=== PATIENT | female | born 1995 | race Caucasian/White ===

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

== ENCOUNTER 2018-06-15 06:49 | Inpatient (IN) | payer MEDICAID ==
[2018-06-15] MEDS ORDERED: Sodium Chloride 0.9% 10 ML Syringe FLUSH PRN (08:02)
[2018-06-15] MEDS ORDERED: Ondansetron 4 MG/2 ML SDV IV PRN (08:02)
[2018-06-15] MEDS ORDERED: Acetaminophen 325 MG Tab PO PRN (08:02)
--- NOTE | 2018-06-15 08:09 | PCM.LDHP ---
L&D History of Present Illness - General Date of Service: 06/15/18 Admit Problem/Dx: Patient Status Order with Admit Dx/Problem 06/15/18 08:02 Patient Status [ADT] Routine Admission Diagnosis/Problem Admission Diagnosis/Problem - Related Data Allergies/Adverse Reactions: Allergies Allergy/AdvReac Type Severity Reaction Status Date / Time gentamicin Allergy Blurred Verified 06/15/18 06:58 Vision Home Medications: Home Meds Albuterol Sulfate [Proair Hfa] 2 puff INH QID 10/30/12 [History] Ferrous Sulfate [Iron] 325 mg PO DAILY 09/17/16 [History] Pnv No.122/Iron/Folic Acid [ Multi Tablet] 1 tab PO DAILY 09/17/16 [ History] Past Medical History HEENT History: Reports: Other (See Below) Other HEENT History: glasses Respiratory History: Reports: Asthma Genitourinary History: Reports: UTI, Recurrent RACKMAN History: Reports: - Infectious Disease History Infectious Disease History: Reports: Chicken Pox - Past Surgical History HEENT Surgical History: Reports: Adenoidectomy, Tonsillectomy, Other (See Below) Other HEENT Surgeries/Procedures: stye surgery on eyes Respiratory Surgical History: Reports: None Social & Family History - Family History Family Medical History: Noncontributory - Caffeine Use Caffeine Use: Reports: None H&P Review of Systems - Review of Systems: Review Of Systems: See Below General: Reports: No Symptoms HEENT: Reports: No Symptoms Pulmonary: Reports: No Symptoms Cardiovascular: Reports: No Symptoms Gastrointestinal: Reports: No Symptoms Genitourinary: Reports: No Symptoms Musculoskeletal: Reports: No Symptoms Skin: Reports: No Symptoms Psychiatric: Reports: No Symptoms Neurological: Reports: No Symptoms Hematologic/Lymphatic: Reports: No Symptoms Immunologic: Reports: No Symptoms L&D Exam - Exam Exam: See Below - Vital Signs Vital Signs: Last Vital Signs Temp 36.8 C 06/15/18 07:25 Pulse 97 06/15/18 07:25 Resp 16 06/15/18 07:25 BP 133/69 06/15/18 07:25 Pulse Ox 95 06/15/18 07:25 Weight: 68.946 kg - OB Specific Contraction Duration (sec): 40-50 Contraction Frequency (min): 1-2 Contraction Intensity: Mild to Moderate Movement: Active Heart Tones: Present Heart Rate (FHR) Variability: Moderate (6-25 bmp) Presentation: Vertex - Kinney Score Kinney Score Cervix Position: Anterior Kinney Score Consistency: Soft Kinney Score Effacement: 51-70% Kinney Score Dilation: 3-4 cm Kinney Score Infant's Station: -1 ,0 Kinney Score Total: 10 - Exam General: Alert, Oriented HEENT: PERRLA, Conjunctiva Clear, EACs Clear, EOMI, Hearing Intact, Mucosa Moist & [place], Nares Patent, Normal Nasal Septum, Posterior Pharynx Clear, TMs Clear Neck: Supple, Trachea Midline Lungs: Clear to Auscultation, Normal Respiratory Effort Cardiovascular: Regular Rate, Regular Rhythm GI/Abdominal Exam: Normal Bowel Sounds, Soft, Non-Tender, No Organomegaly, No Distention, No Abnormal Bruit, No Mass, Pelvis Stable Rectal Exam: Normal Exam, Normal Rectal Tone Genitourinary: Normal external exam, Normal bimanual exam, Normal speculum exam Back Exam: Normal Inspection, Full Range of Motion Extremities: Normal Inspection, Normal Range of Motion, Non-Tender, No Pedal Edema, Normal Capillary Refill Skin: Warm, Dry, Intact Neurological: Cranial Nerves Intact, Reflexes Equal Bilateral Psychiatric: Alert, Normal Affect, Normal Mood - Patient Data Lab Results Last 24 hrs: Laboratory Results - last 24 hr 06/15/18 Range/Units 07:07 Urine Color Yellow Urine Appearance Cloudy Urine pH 7.0 (4.5-8.0) Ur Specific [place] 1.005 L (1.008-1.030) Urine Protein Negative (NEGATIVE) mg/dL Urine Glucose (UA) Normal (NEGATIVE) mg/dL Urine Ketones Negative (NEGATIVE) mg/dL Urine Occult Blood Large (NEGATIVE) Urine Nitrite Negative (NEGATIVE) Urine Bilirubin Negative (NEGATIVE) Urine Urobilinogen Normal (NORMAL) mg/dL Ur Leukocyte Esterase Large (NEGATIVE) Urine RBC 5-10 H (0-5) Urine WBC 40-50 H (0-5) Ur Epithelial Cells Many Amorphous Sediment Not seen Urine Bacteria Moderate Urine Mucus Not seen - Problem List (1) Labor established SNOMED Code(s): 72189594 ICD Code: VCY3781 - Status: Acute Current Visit: Yes (2) Term SNOMED Code(s): 16313742 ICD Code: Z34.80 - ENCOUNTER FOR SUPRVSN OF NORMAL , UNSP TRIMESTER Status: Acute Current Visit: Yes (3) SNOMED Code(s): 98407815 ICD Code: Z34.90 - ENCNTR FOR SUPRVSN OF NORMAL , UNSP, UNSP TRIMESTER Status: Acute Current Visit: No Qualifiers: Weeks of gestation: 39 weeks Qualified Code(s): Z3A.39 - 39 weeks gestation of Problem List Initiated/Reviewed/Updated: Yes Orders Last 24hrs: Active Orders 24 hr Category Date Time Status Patient Status [ADT] Routine ADT 06/15/18 08:02 Active Ambulate [RC] PER UNIT ROUTINE Care 06/15/18 08:02 Active Communication Order [RC] ASDIRECTED Care 06/15/18 08:02 Active Heart Tones [RC] PER UNIT ROUTINE Care 06/15/18 08:02 Active Non Stress Test [RC] Click to Edit Care 06/15/18 08:02 Active May Shower [RC] ASDIRECTED Care 06/15/18 08:02 Active Notify Provider Vital Signs [RC] PRN Care 06/15/18 08:02 Active Notify Provider [RC] PRN Care 06/15/18 08:02 Active OB Check [OM.PC] Click to Edit Care 06/15/18 06:58 Ordered Up ad Lucia [RC] ASDIRECTED Care 06/15/18 08:02 Active Up to Chair [RC] QID Care 06/15/18 08:02 Active VTE/DVT Education [RC] Click to Edit Care 06/15/18 08:03 Active Vital Signs [RC] PER UNIT ROUTINE Care 06/15/18 08:02 Active Regular Diet [DIET] Diet 06/15/18 Breakfast Active CBC WITH AUTO DIFF [HEME] Routine Lab 06/15/18 07:57 Received Acetaminophen [Tylenol] Med 06/15/18 08:02 Ordered 650 mg PO Q4H PRN Ondansetron [Zofran] Med 06/15/18 08:02 Ordered 4 mg IV Q4H PRN Sodium Chloride 0.9% [Saline Flush] Med 06/15/18 08:02 Ordered 10 ml FLUSH ASDIRECTED PRN DVT/VTE Prophylaxis Reflex [OM.PC] Routine Oth 06/15/18 08:02 Ordered Saline Lock Insert [OM.PC] Routine Oth 06/15/18 08:02 Ordered Resuscitation Status Routine Resus Stat 06/15/18 08:02 Ordered Assessment/Plan Comment:: 06/15/2018 23 yo here at 39 5/7 weeks gestation in labor SVE-/-1 Patient states contractions got stronger around 0300 and she waited and came in around 0630 FHTs category one Contractions regular Labs-O positive, Hep B neg, Hep C neg, HIV neg, RPR nonreactive, Rubella Immune , GBS negative Plan- Monitor labor Monitor FHTs Patient can get in tub Intermittent auscultation of FHT while in tub Pain management per patient request Plan and anticipate a vaginal delivery
[2018-06-15] MEDS ORDERED: Mineral Oil 10 ML Bottle ONE ×2 (10:05→10:19)
[2018-06-15] MEDS ORDERED: Oxytocin 10 Units/1 ML SDV ONE ×2 (10:05→10:19)
[2018-06-15] MEDS ORDERED: Lidocaine 1% 50 ML MDV ONE (10:06)
[2018-06-15] MEDS ORDERED: Naloxone 0.4 MG/ML SDV ONE (10:20)
--- NOTE | 2018-06-15 11:56 | PCM.PNLD ---
Labor Progress Note - VS & Meds Vital Signs: Last Vital Signs Temp 36.8 C 06/15/18 07:25 Pulse 97 06/15/18 07:25 Resp 16 06/15/18 07:25 BP 133/69 06/15/18 07:25 Pulse Ox 95 06/15/18 07:25 Active Medications: Current Medications Acetaminophen (Tylenol) 650 mg PO Q4H PRN PRN Reason: Pain (Mild 1-3) and fever Ondansetron HCl (Zofran) 4 mg IV Q4H PRN PRN Reason: Nausea/Vomiting Sodium Chloride (Saline Flush) 10 ml FLUSH ASDIRECTED PRN PRN Reason: Keep Vein Open Discontinued Medications Oxytocin/Sodium Chloride (Pitocin In Ns 20 Units/1,000 Ml) Confirm Administered Dose 20 unit in 1,000 mls @ as directed .ROUTE .STK-MED ONE Stop: 06/15/18 10:22 Lidocaine HCl (Xylocaine 1%) Confirm Administered Dose 100 ml .ROUTE .STK-MED ONE Stop: 06/15/18 10:07 Mineral Oil (Muri-Lube) Confirm Administered Dose 10 ml .ROUTE .STK-MED ONE Stop: 06/15/18 10:06 Mineral Oil (Muri-Lube) Confirm Administered Dose 10 ml .ROUTE .STK-MED ONE Stop: 06/15/18 10:20 Naloxone HCl (Narcan) Confirm Administered Dose 0.4 mg .ROUTE .STK-MED ONE Stop: 06/15/18 10:21 Oxytocin (Pitocin) Confirm Administered Dose 10 unit .ROUTE .STK-MED ONE Stop: 06/15/18 10:06 Oxytocin (Pitocin) Confirm Administered Dose 10 unit .ROUTE .STK-MED ONE Stop: 06/15/18 10:20 - Uterine Contractions Uterine Monitoring Mode: External [place] Contraction Frequency (min): 1-2 Contraction Duration (sec): 56-60 Contraction Intensity: Moderate to Strong Uterine Resting Tone: Soft - Monitoring Heart Rate (FHR) Variability: Moderate (6-25 bmp) - Vaginal Exam Dilation (cm): 8-9 Effacement (Percent): 90 Station: 1 Cervical Position: Midposition Sterile Vaginal Exam Performed By: Bev Sharif - Labor Progress (Free Text) Labor Progress: 06/15/2018 Patient has been progressing nicely in labor SVE-[id number] AROM per patient request and clear fluid Cotnractions regular every 1-2.5 minutes FHTs category one Patient had good pain control in the tub but is currently in bed and using position changes Plan- Continue to monitor labor Continue to monitor FHTs Continue pain management per patient request Plan and anticipate a vaginal delivery
[2018-06-15] MEDS ORDERED: Acetaminophen 325 MG Tab, 50 Tab Bulk Bottle PO PRN (13:19)
[2018-06-15] MEDS ORDERED: Ibuprofen 200 MG Tab, 24 Tab Bulk Bottle PO PRN (13:19)
[2018-06-15] MEDS ORDERED: Lanolin 100% Cream 40 GM Tube TOP PRN (13:19)
[2018-06-15] MEDS ORDERED: Benzocaine 20% Top Spray 56 GM Bottle TOP PRN (13:19)
[2018-06-15] MEDS ORDERED: Witch Hazel Medicated Pads 100/Jar TOP PRN (13:19)
--- NOTE | 2018-06-15 17:32 | PCM.DEL ---
L & D Note - General Info Date of Service: 06/15/18 Mother's Due Date: 06/17/18 - Delivery Note Labor: Spontaneous Delivery Outcome: Livebirth Infant Delivery Method: Spontaneous Vaginal Delivery-Single Infant Delivery Mode: Spontaneous Presentation: Left Occiput Anterior (REANNA) Nuchal Cord: Present Anesthesia Type: None Amniotic Fluid Description: Clear Episiotomy Type: None Laceration: None Placenta: Intact, Spontaneous Cord: 3 Vessels Estimated Blood Loss: 300 Resuscitation Needed: No [place]: Bulb Syringe, Stimulated, Warmed, [place] Used Score 1 min: 9 Score 5 min: 9 Second Stage Interventions: Reports: Second Nurse Reviewed Heart Tones, Encouragement Given, Pushing Effectively, Pushing Involuntarily, Pushing, McRobert's Position Delivery Comments (Free Text/Narrative):: 06/15/2018 23 yo delivered a viable male infant at 39 5/7 gestational weeks at 1304 on 06/15/2018 in REANNA position over an intact perineum after only three contractions with effective pushing. had a nuchal cord times one that was easily reduced. Infant was then placed up on prewarmed blanket on mother's abdomen. Infant was dried, stimulated, and warmed. Infant then began to pink in color and cry vigorously. Delayed cord clamping was done and then cord was double clamped by provider and cut by father of infant. APGARS-9/9, weight- 7lbs 13.9oz, length-21.1 inches. Placenta spontaneous and intact, three vessel cord. EBL-300ml. No lacerations noted of perineum, cervix, labia, vagina, or rectum. Infant now skin to skin with mother in labor room, both stable at this time. Stages of labor- [id number] - General Info Date of Service: 06/15/18 Functional Status: Reports: Pain Controlled - Review of Systems General: Reports: No Symptoms HEENT: Reports: No Symptoms Pulmonary: Reports: No Symptoms Cardiovascular: Reports: No Symptoms Gastrointestinal: Reports: No Symptoms Genitourinary: Reports: No Symptoms Musculoskeletal: Reports: No Symptoms Skin: Reports: No Symptoms Neurological: Reports: No Symptoms Psychiatric: Reports: No Symptoms - Patient Data Vitals - Most Recent: Last Vital Signs Temp 36.6 C 06/15/18 15:00 Pulse 87 06/15/18 15:58 Resp 16 06/15/18 15:58 BP 122/72 06/15/18 15:58 Pulse Ox 99 06/15/18 15:58 Weight - Most Recent: 68.946 kg Lab Results Last 24 Hours: Laboratory Results - last 24 hr 06/15/18 06/15/18 Range/Units 07:07 07:57 WBC 11.3 H (4.5-11.0) K/uL RBC 4.38 (3.30-5.50) M/uL Hgb 12.1 D (12.0-15.0) g/dL Hct 37.7 (36.0-48.0) % MCV 86 (80-98) fL MCH 28 (27-31) pg MCHC 32 (32-36) % Plt Count 137 L (150-400) K/uL Neut % (Auto) 73 H (36-66) % Lymph % (Auto) 14 L (24-44) % [place] % (Auto) 11 H (2-6) % Eos % (Auto) 1 L (2-4) % Baso % (Auto) 0 (0-1) % Urine Color Yellow Urine Appearance Cloudy Urine pH 7.0 (4.5-8.0) Ur Specific [place] 1.005 L (1.008-1.030) Urine Protein Negative (NEGATIVE) mg/dL Urine Glucose (UA) Normal (NEGATIVE) mg/dL Urine Ketones Negative (NEGATIVE) mg/dL Urine Occult Blood Large (NEGATIVE) Urine Nitrite Negative (NEGATIVE) Urine Bilirubin Negative (NEGATIVE) Urine Urobilinogen Normal (NORMAL) mg/dL Ur Leukocyte Esterase Large (NEGATIVE) Urine RBC 5-10 H (0-5) Urine WBC 40-50 H (0-5) Ur Epithelial Cells Many Amorphous Sediment Not seen Urine Bacteria Moderate Urine Mucus Not seen Med Orders - Current: Current Medications Acetaminophen (Tylenol) 650 mg PO Q4H PRN PRN Reason: Pain (Mild 1-3) and fever Last Admin: 06/15/18 16:42 Dose: 650 mg Acetaminophen (Tylenol Bulk Bottle) 325 - 650 mg PO Q4H PRN PRN Reason: Pain Benzocaine (Lrtw-E-Ntfqozl 20% [place]) 0 gm TOP Q4H PRN PRN Reason: Perineal Comfort Measure Emollient Ointment (Lansinoh Hpa) 0 gm TOP ASDIRECTED PRN PRN Reason: Sore Nipples Ibuprofen (Motrin Bulk Bottle) 600 mg PO Q6H PRN PRN Reason: Pain Ondansetron HCl (Zofran) 4 mg IV Q4H PRN PRN Reason: Nausea/Vomiting Sodium Chloride (Saline Flush) 10 ml FLUSH ASDIRECTED PRN PRN Reason: Keep Vein Open Witch Delaney (Tucks) 1 pad TOP ASDIRECTED PRN PRN Reason: Hemorrhoids Discontinued Medications Oxytocin/Sodium Chloride (Pitocin In Ns 20 Units/1,000 Ml) Confirm Administered Dose 20 unit in 1,000 mls @ as directed .ROUTE .STK-MED ONE Stop: 06/15/18 10:22 Last Admin: 06/15/18 13:58 Dose: 999 mls/hr Lidocaine HCl (Xylocaine 1%) Confirm Administered Dose 100 ml .ROUTE .STK-MED ONE Stop: 06/15/18 10:07 Last Admin: 06/15/18 16:00 Dose: Not Given Mineral Oil (Muri-Lube) Confirm Administered Dose 10 ml .ROUTE .STK-MED ONE Stop: 06/15/18 10:06 Last Admin: 06/15/18 16:00 Dose: Not Given Mineral Oil (Muri-Lube) Confirm Administered Dose 10 ml .ROUTE .STK-MED ONE Stop: 06/15/18 10:20 Last Admin: 06/15/18 16:00 Dose: Not Given Naloxone HCl (Narcan) Confirm Administered Dose 0.4 mg .ROUTE .STK-MED ONE Stop: 06/15/18 10:21 Last Admin: 06/15/18 16:00 Dose: Not Given Oxytocin (Pitocin) Confirm Administered Dose 10 unit .ROUTE .STK-MED ONE Stop: 06/15/18 10:06 Last Admin: 06/15/18 16:00 Dose: Not Given Oxytocin (Pitocin) Confirm Administered Dose 10 unit .ROUTE .STK-MED ONE Stop: 06/15/18 10:20 Last Admin: 06/15/18 16:00 Dose: Not Given - Exam General: Alert, Oriented, Cooperative HEENT: Pupils Equal, Pupils Reactive, EOMI, Mucous Membr. Moist/[place] Neck: Supple Lungs: Clear to Auscultation, Normal Respiratory Effort Cardiovascular: Regular Rate, Regular Rhythm GI/Abdominal Exam: Normal Bowel Sounds, Soft, Non-Tender, No Organomegaly, No Distention, No Abnormal Bruit, No Mass, Pelvis Stable (Female) Exam: Normal External Exam, Normal Speculum Exam, Normal Bimanual Exam Back Exam: Normal Inspection, Full Range of Motion Extremities: Normal Inspection, Normal Range of Motion, Non-Tender, No Pedal Edema, Normal Capillary Refill Skin: Warm, Dry, Intact Neurological: No New Focal Deficit Psy/Mental Status: Alert, Normal Affect, Normal Mood - Problem List & Annotations (1) Labor established SNOMED Code(s): 98491239 Code(s): OYV2781 - Status: Acute Current Visit: Yes (2) Term SNOMED Code(s): 44278820 Code(s): Z34.80 - ENCOUNTER FOR SUPRVSN OF NORMAL , UNSP TRIMESTER Status: Acute Current Visit: Yes (3) SNOMED Code(s): 66955887 Code(s): Z34.90 - ENCNTR FOR SUPRVSN OF NORMAL , UNSP, UNSP TRIMESTER Status: Acute Current Visit: No Qualifiers: Weeks of gestation: 39 weeks Qualified Code(s): Z3A.39 - 39 weeks gestation of (4) () SNOMED Code(s): 947354494 Code(s): Z78.9 - OTHER SPECIFIED HEALTH STATUS Status: Acute Current Visit: Yes (5) Normal vaginal delivery SNOMED Code(s): 83571427 Code(s): O80 - ENCOUNTER FOR FULL-TERM UNCOMPLICATED DELIVERY Status: Acute Current Visit: No - Problem List Review Problem List Initiated/Reviewed/Updated: Yes - My Orders Last 24 Hours: My Active Orders 06/15/18 06:58 OB Check [OM.PC] Click to Edit 06/15/18 08:02 Patient Status [ADT] Routine Ambulate [RC] PER UNIT ROUTINE Communication Order [RC] ASDIRECTED Heart Tones [RC] PER UNIT ROUTINE Non Stress Test [RC] Click to Edit May Shower [RC] ASDIRECTED Notify Provider Vital Signs [RC] PRN Notify Provider [RC] PRN Up ad Lucia [RC] ASDIRECTED Up to Chair [RC] QID Vital Signs [RC] PER UNIT ROUTINE Acetaminophen [Tylenol] 650 mg PO Q4H PRN Ondansetron [Zofran] 4 mg IV Q4H PRN Sodium Chloride 0.9% [Saline Flush] 10 ml FLUSH ASDIRECTED PRN DVT/VTE Prophylaxis Reflex [OM.PC] Routine Saline Lock Insert [OM.PC] Routine Resuscitation Status Routine 06/15/18 08:03 VTE/DVT Education [RC] Click to Edit 06/15/18 13:19 Patient Status [ADT] Routine Vital Signs [RC] PFP Acetaminophen [Tylenol Bulk Bottle] 325 - 650 mg PO Q4H PRN Benzocaine [Dkxm-Z-Bwgvren 20% Hamler] See Dose Instructions TOP Q4H PRN Ibuprofen [Motrin Bulk Bottle] 600 mg PO Q6H PRN Lanolin [Lansinoh HPA] 0 gm TOP ASDIRECTED PRN Witch Delaney [Tucks] 1 pad TOP ASDIRECTED PRN Assess Lochia [WOMSER] Per Unit Routine Assess Uterine Involution [WOMSER] Per Unit Routine Ice Therapy [OM.PC] Per Unit Routine Perineal Care [OM.PC] Per Unit Routine 06/15/18 Breakfast Regular Diet [DIET] 06/16/18 06:00 CBC WITH AUTO DIFF [HEME] Routine - Assessment Assessment:: 06/15/2018 23 yo [id number] at 39 5/7 gestational weeks had a without complications Labs-O positive, Hep B neg, Hep C neg, HIV neg, RPR nonreactive, Rubella Immune , GBS negative - Plan Plan:: 06/15/2018 23 yo here at 39 5/7 weeks gestation in labor SVE-3/60/-1 Patient states contractions got stronger around 0300 and she waited and came in around 0630 FHTs category one Contractions regular Labs-O positive, Hep B neg, Hep C neg, HIV neg, RPR nonreactive, Rubella Immune , GBS negative Plan- Monitor labor Monitor FHTs Patient can get in tub Intermittent auscultation of FHT while in tub Pain management per patient request Plan and anticipate a vaginal delivery 06/15/2018 Routine cares Encourage and support Plan discharge 24-48 hours
--- NOTE | 2018-06-16 08:49 | PCM.PNPP ---
<Xena Awan - Last Filed: 06/16/18 08:44> - General Info Date of Service: 06/16/18 (PP day 1) Functional Status: Reports: Pain Controlled - Review of Systems General: Reports: No Symptoms HEENT: Reports: No Symptoms Pulmonary: Reports: No Symptoms Cardiovascular: Reports: No Symptoms Gastrointestinal: Reports: No Symptoms Genitourinary: Reports: No Symptoms Musculoskeletal: Reports: No Symptoms Skin: Reports: No Symptoms Neurological: Reports: No Symptoms Psychiatric: Reports: No Symptoms - General Info Date of Service: 06/16/18 - Patient Data Vital Signs - Most Recent: Last Vital Signs Temp 36.4 C 06/16/18 07:28 Pulse 93 06/16/18 07:28 Resp 16 06/16/18 07:28 BP 120/56 L 06/16/18 07:28 Pulse Ox 96 06/16/18 07:28 Weight - Most Recent: 151 lb 15.998 oz Lab Results - Last 24 Hours: Laboratory Results - last 24 hr 06/16/18 Range/Units 06:00 WBC 13.4 H (4.5-11.0) K/uL RBC 4.12 (3.30-5.50) M/uL Hgb 11.3 L (12.0-15.0) g/dL Hct 35.5 L (36.0-48.0) % MCV 86 (80-98) fL MCH 27 (27-31) pg MCHC 32 (32-36) % Plt Count 146 L (150-400) K/uL Neut % (Auto) 69 H (36-66) % Lymph % (Auto) 21 L (24-44) % [place] % (Auto) 9 H (2-6) % Eos % (Auto) 2 (2-4) % Baso % (Auto) 0 (0-1) % Med Orders - Current: Current Medications Acetaminophen (Tylenol) 650 mg PO Q4H PRN PRN Reason: Pain (Mild 1-3) and fever Last Admin: 06/15/18 16:42 Dose: 650 mg Acetaminophen (Tylenol Bulk Bottle) 325 - 650 mg PO Q4H PRN PRN Reason: Pain Benzocaine (Bmaf-D-Atxriea 20% Pringle) 0 gm TOP Q4H PRN PRN Reason: Perineal Comfort Measure Emollient Ointment (Lansinoh Hpa) 0 gm TOP ASDIRECTED PRN PRN Reason: Sore Nipples Ibuprofen (Motrin Bulk Bottle) 600 mg PO Q6H PRN PRN Reason: Pain Ondansetron HCl (Zofran) 4 mg IV Q4H PRN PRN Reason: Nausea/Vomiting Sodium Chloride (Saline Flush) 10 ml FLUSH ASDIRECTED PRN PRN Reason: Keep Vein Open Witch Delaney (Tucks) 1 pad TOP ASDIRECTED PRN PRN Reason: Hemorrhoids Discontinued Medications Oxytocin/Sodium Chloride (Pitocin In Ns 20 Units/1,000 Ml) Confirm Administered Dose 20 unit in 1,000 mls @ as directed .ROUTE .STK-MED ONE Stop: 06/15/18 10:22 Last Admin: 06/15/18 13:58 Dose: 999 mls/hr Lidocaine HCl (Xylocaine 1%) Confirm Administered Dose 100 ml .ROUTE .STK-MED ONE Stop: 06/15/18 10:07 Last Admin: 06/15/18 16:00 Dose: Not Given Mineral Oil (Muri-Lube) Confirm Administered Dose 10 ml .ROUTE .STK-MED ONE Stop: 06/15/18 10:06 Last Admin: 06/15/18 16:00 Dose: Not Given Mineral Oil (Muri-Lube) Confirm Administered Dose 10 ml .ROUTE .STK-MED ONE Stop: 06/15/18 10:20 Last Admin: 06/15/18 16:00 Dose: Not Given Naloxone HCl (Narcan) Confirm Administered Dose 0.4 mg .ROUTE .STK-MED ONE Stop: 06/15/18 10:21 Last Admin: 06/15/18 16:00 Dose: Not Given Oxytocin (Pitocin) Confirm Administered Dose 10 unit .ROUTE .STK-MED ONE Stop: 06/15/18 10:06 Last Admin: 06/15/18 16:00 Dose: Not Given Oxytocin (Pitocin) Confirm Administered Dose 10 unit .ROUTE .STK-MED ONE Stop: 06/15/18 10:20 Last Admin: 06/15/18 16:00 Dose: Not Given - Infant Interaction Disposition, : [place] in Room with Family Interaction: Holding Infant Feeding: Breastfed ; Nursed Well Support Person: Significant Other, Other (see below) - Recovery Exam Fundal Tone: Firm Fundal Level: At Umbilicus Fundal Placement: Midline Lochia Amount: Small Lochia Color: Rubra/Red Perineum Description: Intact, Minimal Bruising/Swelling Episiotomy/Laceration: None Bladder Status: Voiding Urinary Elimination: Voided - Exam General: Alert, Oriented HEENT: Pupils Equal Neck: Supple Lungs: Clear to Auscultation, Normal Respiratory Effort Cardiovascular: Regular Rate, Regular Rhythm GI/Abdominal Exam: Normal Bowel Sounds, Soft, Non-Tender, No Organomegaly, No Distention, No Abnormal Bruit, No Mass, Pelvis Stable Extremities: Normal Inspection, Normal Range of Motion, Non-Tender, No Pedal Edema, Normal Capillary Refill Skin: Warm, Dry, Intact Neurological: No New Focal Deficit Psy/Mental Status: Alert, Normal Affect, Normal Mood - Problem List & Annotations (1) () SNOMED Code(s): 596565313 Code(s): Z78.9 - OTHER SPECIFIED HEALTH STATUS Status: Acute Current Visit: Yes (2) Term SNOMED Code(s): 99883657 Code(s): Z34.80 - ENCOUNTER FOR SUPRVSN OF NORMAL , UNSP TRIMESTER Status: Acute Current Visit: Yes (3) Active labor at term SNOMED Code(s): 46963471 Code(s): ABO9822 - Status: Acute Current Visit: No (4) Normal vaginal delivery SNOMED Code(s): 44469171 Code(s): O80 - ENCOUNTER FOR FULL-TERM UNCOMPLICATED DELIVERY Status: Acute Current Visit: No (5) SNOMED Code(s): 62213033 Code(s): Z34.90 - ENCNTR FOR SUPRVSN OF NORMAL , UNSP, UNSP TRIMESTER Status: Acute Current Visit: No Qualifiers: Weeks of gestation: 39 weeks Qualified Code(s): Z3A.39 - 39 weeks gestation of - Problem List Review Problem List Initiated/Reviewed/Updated: Yes - Assessment Assessment:: 06/15/2018 23 yo [id number] at 39 5/7 gestational weeks had a without complications Labs-O positive, Hep B neg, Hep C neg, HIV neg, RPR nonreactive, Rubella Immune , GBS negative 06/16/18 23 yo day 1 PP FF, bleeding light Pain controlled is going well Perineum intact - Plan Plan:: 06/15/2018 23 yo here at 39 5/7 weeks gestation in labor SVE-/-1 Patient states contractions got stronger around 0300 and she waited and came in around 0630 FHTs category one Contractions regular Labs-O positive, Hep B neg, Hep C neg, HIV neg, RPR nonreactive, Rubella Immune , GBS negative Plan- Monitor labor Monitor FHTs Patient can get in tub Intermittent auscultation of FHT while in tub Pain management per patient request Plan and anticipate a vaginal delivery 06/15/2018 Routine cares Encourage and support Plan discharge 24-48 hours 06/16/18 Routine PP cares support Anticipate discharge home tomorrow <Caitlin Pinedo - Last Filed: 06/16/18 08:57> - Patient Data Vital Signs - Most Recent: Last Vital Signs Temp 97.6 F 06/16/18 07:28 Pulse 93 06/16/18 07:28 Resp 16 06/16/18 07:28 BP 120/56 L 06/16/18 07:28 Pulse Ox 96 06/16/18 07:28 Lab Results - Last 24 Hours: Laboratory Results - last 24 hr 06/16/18 Range/Units 06:00 WBC 13.4 H (4.5-11.0) K/uL RBC 4.12 (3.30-5.50) M/uL Hgb 11.3 L (12.0-15.0) g/dL Hct 35.5 L (36.0-48.0) % MCV 86 (80-98) fL MCH 27 (27-31) pg MCHC 32 (32-36) % Plt Count 146 L (150-400) K/uL Neut % (Auto) 69 H (36-66) % Lymph % (Auto) 21 L (24-44) % [place] % (Auto) 9 H (2-6) % Eos % (Auto) 2 (2-4) % Baso % (Auto) 0 (0-1) % Med Orders - Current: Current Medications Acetaminophen (Tylenol) 650 mg PO Q4H PRN PRN Reason: Pain (Mild 1-3) and fever Last Admin: 06/15/18 16:42 Dose: 650 mg Acetaminophen (Tylenol Bulk Bottle) 325 - 650 mg PO Q4H PRN PRN Reason: Pain Benzocaine (Cwsy-X-Plwlfcd 20% Pringle) 0 gm TOP Q4H PRN PRN Reason: Perineal Comfort Measure Emollient Ointment (Lansinoh Hpa) 0 gm TOP ASDIRECTED PRN PRN Reason: Sore Nipples Ibuprofen (Motrin Bulk Bottle) 600 mg PO Q6H PRN PRN Reason: Pain Ondansetron HCl (Zofran) 4 mg IV Q4H PRN PRN Reason: Nausea/Vomiting Sodium Chloride (Saline Flush) 10 ml FLUSH ASDIRECTED PRN PRN Reason: Keep Vein Open Witch Delaney (Tucks) 1 pad TOP ASDIRECTED PRN PRN Reason: Hemorrhoids Discontinued Medications Oxytocin/Sodium Chloride (Pitocin In Ns 20 Units/1,000 Ml) Confirm Administered Dose 20 unit in 1,000 mls @ as directed .ROUTE .STK-MED ONE Stop: 06/15/18 10:22 Last Admin: 06/15/18 13:58 Dose: 999 mls/hr Lidocaine HCl (Xylocaine 1%) Confirm Administered Dose 100 ml .ROUTE .STK-MED ONE Stop: 06/15/18 10:07 Last Admin: 06/15/18 16:00 Dose: Not Given Mineral Oil (Muri-Lube) Confirm Administered Dose 10 ml .ROUTE .STK-MED ONE Stop: 06/15/18 10:06 Last Admin: 06/15/18 16:00 Dose: Not Given Mineral Oil (Muri-Lube) Confirm Administered Dose 10 ml .ROUTE .STK-MED ONE Stop: 06/15/18 10:20 Last Admin: 06/15/18 16:00 Dose: Not Given Naloxone HCl (Narcan) Confirm Administered Dose 0.4 mg .ROUTE .STK-MED ONE Stop: 06/15/18 10:21 Last Admin: 06/15/18 16:00 Dose: Not Given Oxytocin (Pitocin) Confirm Administered Dose 10 unit .ROUTE .STK-MED ONE Stop: 06/15/18 10:06 Last Admin: 06/15/18 16:00 Dose: Not Given Oxytocin (Pitocin) Confirm Administered Dose 10 unit .ROUTE .ST-MED ONE Stop: 06/15/18 10:20 Last Admin: 06/15/18 16:00 Dose: Not Given - Plan Plan:: I personally performed or re-performed the physical examination and medical decision making. I have verified all student documentation or findings, including history, physical exam and/or medical decision making.Caitlin Pinedo APRN, RACHEL, CFNP
[2018-06-17 07:34] VITALS: BP 125/68
--- NOTE | 2018-06-17 09:22 | PCM.PNPP ---
- General Info Date of Service: 06/17/18 (PPD 2 D/C) Admission Dx/Problem (Free Text): Patient Status Order with Admit Dx/Problem 06/15/18 08:02 Patient Status [ADT] Routine Admission Diagnosis/Problem Admission Diagnosis/Problem Functional Status: Reports: Pain Controlled - Review of Systems General: Reports: No Symptoms HEENT: Reports: No Symptoms Pulmonary: Reports: No Symptoms Cardiovascular: Reports: No Symptoms Gastrointestinal: Reports: No Symptoms Genitourinary: Reports: No Symptoms Musculoskeletal: Reports: No Symptoms Skin: Reports: No Symptoms Neurological: Reports: No Symptoms Psychiatric: Reports: No Symptoms - General Info Date of Service: 06/17/18 - Patient Data Vital Signs - Most Recent: Last Vital Signs Temp 98.5 F 06/17/18 07:33 Pulse 89 06/17/18 07:33 Resp 16 06/17/18 07:33 BP 125/68 06/17/18 07:33 Pulse Ox 97 06/17/18 07:33 Weight - Most Recent: 151 lb 15.998 oz I&O - Last 24 Hours: Intake & Output 06/16/18 06/17/18 06/17/18 22:59 06:59 14:59 Intake Total 600 Balance 600 Med Orders - Current: Current Medications Acetaminophen (Tylenol) 650 mg PO Q4H PRN PRN Reason: Pain (Mild 1-3) and fever Last Admin: 06/15/18 16:42 Dose: 650 mg Acetaminophen (Tylenol Bulk Bottle) 325 - 650 mg PO Q4H PRN PRN Reason: Pain Benzocaine (Aspx-N-Lcmqicr 20% [place]) 0 gm TOP Q4H PRN PRN Reason: Perineal Comfort Measure Emollient Ointment (Lansinoh Hpa) 0 gm TOP ASDIRECTED PRN PRN Reason: Sore Nipples Ibuprofen (Motrin Bulk Bottle) 600 mg PO Q6H PRN PRN Reason: Pain Ondansetron HCl (Zofran) 4 mg IV Q4H PRN PRN Reason: Nausea/Vomiting Sodium Chloride (Saline Flush) 10 ml FLUSH ASDIRECTED PRN PRN Reason: Keep Vein Open Witch Delaney (Tucks) 1 pad TOP ASDIRECTED PRN PRN Reason: Hemorrhoids Discontinued Medications Oxytocin/Sodium Chloride (Pitocin In Ns 20 Units/1,000 Ml) Confirm Administered Dose 20 unit in 1,000 mls @ as directed .ROUTE .STK-MED ONE Stop: 06/15/18 10:22 Last Admin: 06/15/18 13:58 Dose: 999 mls/hr Lidocaine HCl (Xylocaine 1%) Confirm Administered Dose 100 ml .ROUTE .STK-MED ONE Stop: 06/15/18 10:07 Last Admin: 06/15/18 16:00 Dose: Not Given Mineral Oil (Muri-Lube) Confirm Administered Dose 10 ml .ROUTE .STK-MED ONE Stop: 06/15/18 10:06 Last Admin: 06/15/18 16:00 Dose: Not Given Mineral Oil (Muri-Lube) Confirm Administered Dose 10 ml .ROUTE .STK-MED ONE Stop: 06/15/18 10:20 Last Admin: 06/15/18 16:00 Dose: Not Given Naloxone HCl (Narcan) Confirm Administered Dose 0.4 mg .ROUTE .STK-MED ONE Stop: 06/15/18 10:21 Last Admin: 06/15/18 16:00 Dose: Not Given Oxytocin (Pitocin) Confirm Administered Dose 10 unit .ROUTE .STK-MED ONE Stop: 06/15/18 10:06 Last Admin: 06/15/18 16:00 Dose: Not Given Oxytocin (Pitocin) Confirm Administered Dose 10 unit .ROUTE .STK-MED ONE Stop: 06/15/18 10:20 Last Admin: 06/15/18 16:00 Dose: Not Given - Interaction Disposition, : [place] in Room with Family Infant Interaction: Holding Feeding: Breastfed Infant; Nursed Well Support Person: Significant Other, Other (see below) - Recovery Exam Fundal Tone: Firm Fundal Level: 2 Fingerbreadths Below Umbilicus Fundal Placement: Midline Lochia Amount: Moderate Lochia Color: Rubra/Red Perineum Description: Intact, Minimal Bruising/Swelling Episiotomy/Laceration: None Bladder Status: Voiding Urinary Elimination: Voided - Exam General: Alert, Oriented HEENT: Pupils Equal Neck: Supple Lungs: Clear to Auscultation, Normal Respiratory Effort Cardiovascular: Regular Rate, Regular Rhythm GI/Abdominal Exam: Normal Bowel Sounds, Soft, Non-Tender, No Distention, No Mass , Pelvis Stable Extremities: Normal Inspection, Normal Range of Motion, Non-Tender Skin: Warm, Dry, Intact Wound/Incisions: Healing Well Neurological: No New Focal Deficit Psy/Mental Status: Alert, Normal Affect, Normal Mood - Problem List & Annotations (1) Term SNOMED Code(s): 93492469 Code(s): Z34.80 - ENCOUNTER FOR SUPRVSN OF NORMAL , UNSP TRIMESTER Status: Acute Current Visit: Yes (2) () SNOMED Code(s): 385247501 Code(s): Z78.9 - OTHER SPECIFIED HEALTH STATUS Status: Acute Current Visit: Yes (3) Normal vaginal delivery SNOMED Code(s): 97336444 Code(s): O80 - ENCOUNTER FOR FULL-TERM UNCOMPLICATED DELIVERY Status: Acute Current Visit: No (4) Active labor at term SNOMED Code(s): 20447452 Code(s): UJN2253 - Status: Acute Current Visit: No - Problem List Review Problem List Initiated/Reviewed/Updated: Yes - Assessment Assessment:: 06/15/2018 23 yo [id number] at 39 5/7 gestational weeks had a without complications Labs-O positive, Hep B neg, Hep C neg, HIV neg, RPR nonreactive, Rubella Immune , GBS negative 06/16/18 23 yo day 1 PP FF, bleeding light Pain controlled is going well Perineum intact 06/17/18 without complications, doing well [place] flow voiding up and about Wants to go home - Plan Plan:: I personally performed or re-performed the physical examination and medical decision making. I have verified all student documentation or findings, including history, physical exam and/or medical decision making.Caitlin Pinedo APRN, RACHEL, [place] 06/17/18 Home today see RACHEL Sharif 6 weeks
== END 2018-06-17 11:20 | disposition home or self-care (01) | DRG 807 ==
LOC: JP.OBCHECK 06:49 → JP.OB 08:00 → OBSVTOIN 13:04 → JP.MS 13:05
PROVIDERS: ADMIT Advanced Practice Midwife; ATTEND Advanced Practice Midwife
PROC: 10E0XZZ Delivery of Products of Conception, External Approach (ICD-10-PCS; principal; 2018-06-15)
PROC: 10907ZC Drainage of Amniotic Fluid, Therapeutic from Products of Conception, Via Natural or Artificial Opening (ICD-10-PCS; 2018-06-15)
DX: O69.81X0 Labor and delivery complicated by cord around neck, without compression, not applicable or unspecified (principal); Z37.0 Single live birth; O99.52 Diseases of the respiratory system complicating childbirth; Z3A.39 39 weeks gestation of pregnancy; J45.909 Unspecified asthma, uncomplicated; Z88.1 Allergy status to other antibiotic agents
CPT/HCPCS: 36415; 59409; 81001; 85025; 99211; A9270-GY; J2590

== ENCOUNTER 2020-11-13 04:49 | Inpatient (IN) | payer MEDICAID ==
[2020-11-13] MEDS ORDERED: Penicillin G Potassium 5 MILLUNITS in Sodium Chloride 0.9% 50 ML IV ONE (05:35)
[2020-11-13] MEDS ORDERED: Acetaminophen 325 MG Tab PO PRN (05:35)
[2020-11-13] MEDS ORDERED: Sodium Chloride 0.9% 10 ML Syringe FLUSH PRN (05:35)
[2020-11-13] MEDS ORDERED: Ondansetron 4 MG/2 ML SDV IV PRN (05:35)
[2020-11-13] MEDS ORDERED: Sodium Chloride 0.9% 50 ML ONE (05:47)
--- NOTE | 2020-11-13 06:13 | PCM.LDHP ---
<Dottie Desouza A - Last Filed: 11/13/20 06:07> L&D History of Present Illness - General Date of Service: 11/13/20 Admit Problem/Dx: Patient Status Order with Admit Dx/Problem 11/13/20 05:35 Patient Status [ADT] Routine Admission Diagnosis/Problem Admission Diagnosis/Problem Source of Information: Patient History Limitations: Reports: No Limitations - History of Present Illness Introduction:: 11/13/20 Imani is a 25 year old at 39weeks 2 days who came in around 0500 stating that she has been noticing contractions since about 0200. She denies any leaking of fluid, abnormal discharge, or vaginal bleeding. EFM shows a baseline of 145bpm with accels and no decels. SVE for 6-7cm and 80% effaced. IV accessed was obtained and penicillin given for GBS positive status. She desires no pharmacologic pain management at this time and is laboring in the tub with intermittent auscultation for monitoring at this time. This was complicated by IUGR which has improved since diagnosis and at her last ultrasound, baby measured in the 11th percentile. 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: - Infectious Disease History Infectious Disease History: Reports: Chicken Pox - Past Surgical History HEENT Surgical History: Reports: Adenoidectomy, Tonsillectomy, Other (See Below) Other HEENT Surgeries/Procedures: stye surgery on eyes Respiratory Surgical History: Reports: None Social & Family History - Family History Family Medical History: No Pertinent Family History - Caffeine Use Caffeine Use: Reports: None H&P Review of Systems - Review of Systems: Review Of Systems: See Below General: Reports: No Symptoms HEENT: Reports: No Symptoms Pulmonary: Reports: No Symptoms Cardiovascular: Reports: No Symptoms Gastrointestinal: Reports: No Symptoms Genitourinary: Reports: No Symptoms Musculoskeletal: Reports: No Symptoms Skin: Reports: No Symptoms Psychiatric: Reports: No Symptoms Neurological: Reports: No Symptoms Hematologic/Lymphatic: Reports: No Symptoms L&D Exam - Exam Exam: See Below - OB Specific Contraction Frequency (min): 1-3 Contraction Intensity: Moderate to Strong Movement: Active Heart Tones: Present Heart Tones per Min: 145 Heart Rate (FHR) Variability: Moderate (6-25 bpm) - Exam General: Alert, Oriented HEENT: PERRLA, Conjunctiva Clear, EOMI, Hearing Intact, Nares Patent Neck: Supple, Trachea Midline Lungs: Normal Respiratory Effort Cardiovascular: Regular Rate GI/Abdominal Exam: Soft, Non-Tender Rectal Exam: Normal Exam, Normal Rectal Tone Genitourinary: Normal external exam, Normal bimanual exam, Normal speculum exam Back Exam: Normal Inspection, Full Range of Motion Extremities: Normal Inspection, Normal Range of Motion, Non-Tender, No Pedal Edema, Normal Capillary Refill Skin: Warm, Dry, Intact Neurological: Cranial Nerves Intact, Reflexes Equal Bilateral Psychiatric: Alert, Normal Affect, Normal Mood - Patient Data Lab Results Last 24 hrs: Laboratory Results - last 24 hr 11/13/20 11/13/20 11/13/20 Range/Units 04:56 05:35 05:40 WBC 11.3 H (4.5-11.0) K/uL RBC 4.39 (3.30-5.50) M/uL Hgb 11.6 L (12.0-15.0) g/dL Hct 35.7 L (36.0-48.0) % MCV 81 (80-98) fL MCH 26 L (27-31) pg MCHC 33 (32-36) % Plt Count 172 (150-400) K/uL Neut % (Auto) 71.7 H (36-66) % Lymph % (Auto) 17.1 L (24-44) % [place] % (Auto) 9.6 H (2-6) % Eos % (Auto) 1.4 L (2-4) % Baso % (Auto) 0.2 (0-1) % Urine Color Yellow (YELLOW) Urine Appearance Clear (CLEAR) Urine pH 7.5 (5.0-8.0) Ur Specific [place] 1.020 (1.008-1.030) Urine Protein Negative (NEGATIVE) mg/dL Urine Glucose (UA) Negative (NEGATIVE) mg/dL Urine Ketones Negative (NEGATIVE) mg/dL Urine Occult Blood Negative (NEGATIVE) Urine Nitrite Negative (NEGATIVE) Urine Bilirubin Negative (NEGATIVE) Urine Urobilinogen 0.2 (0.2-1.0) EU/dL Ur Leukocyte Esterase Trace H (NEGATIVE) Urine RBC 0-5 (0-5) Urine WBC 0-5 (0-5) Ur Epithelial Cells Few Amorphous Sediment Not seen Urine Bacteria Moderate Urine Mucus Not seen Urine Opiates Screen Negative (NEGATIVE) Ur Oxycodone Screen Negative (NEGATIVE) Urine Methadone Screen Negative (NEGATIVE) Ur Propoxyphene Screen Negative (NEGATIVE) Ur Barbiturates Screen Negative (NEGATIVE) Ur Tricyclics Screen Negative (NEGATIVE) Ur Phencyclidine Scrn Negative (NEGATIVE) Ur Amphetamine Screen Negative (NEGATIVE) U Methamphetamines Scrn Negative (NEGATIVE) Urine MDMA Screen Negative (NEGATIVE) U Benzodiazepines Scrn Negative (NEGATIVE) U Cocaine Metab Screen Negative (NEGATIVE) U Marijuana (THC) Screen Negative (NEGATIVE) Result Diagrams: 11/13/20 05:40 - Problem List (1) Active labor at term SNOMED Code(s): 78080280 ICD Code: [id number] - Status: Acute Current Visit: No (2) Labor established SNOMED Code(s): 54299840 ICD Code: [id number] - Status: Acute Current Visit: No (3) Normal vaginal delivery SNOMED Code(s): 95675232, 627361879 ICD Code: O80 - ENCOUNTER FOR FULL-TERM UNCOMPLICATED DELIVERY Status: Acute Current Visit: No (4) Term SNOMED Code(s): 02854492 ICD Code: Z34.80 - ENCOUNTER FOR SUPRVSN OF NORMAL , UNSP TRIMESTER Status: Acute Current Visit: No (5) SNOMED Code(s): 28639612 ICD Code: Z34.90 - ENCNTR FOR SUPRVSN OF NORMAL , UNSP, UNSP TRIMESTER Status: Acute Current Visit: No Qualifiers: Weeks of gestation: 39 weeks Qualified Code(s): Z3A.39 - 39 weeks gestation of Problem List Initiated/Reviewed/Updated: Yes Orders Last 24hrs: Active Orders 24 hr Category Date Time Status Patient Status [ADT] Routine ADT 11/13/20 05:35 Active Ambulate [RC] PER UNIT ROUTINE Care 11/13/20 05:35 Active Communication Order [RC] ASDIRECTED Care 11/13/20 05:35 Active Heart Tones [RC] PER UNIT ROUTINE Care 11/13/20 05:35 Active Non Stress Test [RC] Click to Edit Care 11/13/20 05:35 Active May Shower [RC] ASDIRECTED Care 11/13/20 05:35 Active Notify Provider Vital Signs [RC] PRN Care 11/13/20 05:35 Active Notify Provider [RC] PRN Care 11/13/20 05:35 Active OB Check [OM.PC] Click To Edit Care 11/13/20 04:56 Ordered Up ad Lucia [RC] ASDIRECTED Care 11/13/20 05:35 Active VTE/DVT Education [RC] Click to Edit Care 11/13/20 05:37 Active Vital Signs [RC] PER UNIT ROUTINE Care 11/13/20 05:35 Active Regular Diet [DIET] Diet 11/13/20 Breakfast Active CORONAVIRUS COVID-19 TALI [MOLEC] Stat Lab 11/13/20 05:44 Ordered Acetaminophen [TylenoL] Med 11/13/20 05:35 Active 650 mg PO Q4H PRN Ondansetron [Zofran] Med 11/13/20 05:35 Active 4 mg IV Q4H PRN Oxytocin/Normal Saline [Pitocin in NS 20 Units/1,000 ML Med 11/13/20 06:00 Active ] 20 unit in 1,000 ml IV TITRATE Sodium Chloride 0.9% [Saline Flush] Med 11/13/20 05:35 Active 10 ml FLUSH ASDIRECTED PRN DVT/VTE Prophylaxis Reflex [OM.PC] Routine Oth 11/13/20 05:35 Ordered Saline Lock Insert [OM.PC] Routine Oth 11/13/20 05:35 Ordered Resuscitation Status Routine Resus Stat 11/13/20 05:35 Ordered Medication Orders Acetaminophen (Acetaminophen 325 Mg Tab) 650 mg PO Q4H PRN PRN Reason: Pain (Mild 1-3) and fever Oxytocin/Sodium Chloride (Pitocin In Ns 20 Units/1,000 Ml) 20 unit in 1,000 mls @ 999 mls/hr IV TITRATE NEERU; Protocol Ondansetron HCl (Ondansetron 4 Mg/2 Ml Sdv) 4 mg IV Q4H PRN PRN Reason: Nausea/Vomiting Sodium Chloride (Sodium Chloride 0.9% 10 Ml Syringe) 10 ml FLUSH ASDIRECTED PRN PRN Reason: Keep Vein Open Assessment/Plan Comment:: 11/13/20 Assessment: Healthy at 39/2 weeks gestation complicated by IUGR EFM is category one GBS positive Desires unmedicated Plan: Anticipate Penicillin per protocol for GBS Continue to monitor baby with EFM/doppler Continue to monitor contraction pattern <Bev Sharif - Last Filed: 11/13/20 08:02> L&D History of Present Illness - General Admit Problem/Dx: Patient Status Order with Admit Dx/Problem 11/13/20 05:35 Patient Status [ADT] Routine 11/13/20 07:51 Patient Status [ADT] Routine Admission Diagnosis/Problem Admission Diagnosis/Problem Vaginal delivery H&P Review of Systems - Review of Systems: Immunologic: Reports: No Symptoms L&D Exam - Vital Signs Vital Signs: Last Vital Signs Temp 36.8 C 11/13/20 05:05 Pulse 88 11/13/20 05:05 Resp 16 11/13/20 05:05 BP 121/66 11/13/20 05:05 Pulse Ox 98 11/13/20 05:05 - Exam General: Cooperative HEENT: Mucosa Moist & [place], Pupils Equal, Pupils Reactive Neck: Supple, Trachea Midline Lungs: Clear to Auscultation Cardiovascular: Regular Rate, Regular Rhythm GI/Abdominal Exam: Normal Bowel Sounds, Soft, Non-Tender, No Organomegaly, No Distention, No Abnormal Bruit, No Mass, Pelvis Stable Rectal Exam: Normal Exam, Normal Rectal Tone Genitourinary: Normal external exam, Normal bimanual exam, Normal speculum exam, Cervical dilitation Back Exam: Normal Inspection, Full Range of Motion Extremities: Normal Inspection, Normal Range of Motion, Non-Tender, No Pedal Edema, Normal Capillary Refill Skin: Warm, Dry, Intact Neurological: Cranial Nerves Intact, Reflexes Equal Bilateral Psychiatric: Alert, Normal Affect, Normal Mood - Patient Data Lab Results Last 24 hrs: Laboratory Results - last 24 hr 11/13/20 11/13/20 11/13/20 Range/Units 04:56 05:35 05:40 WBC 11.3 H (4.5-11.0) K/uL RBC 4.39 (3.30-5.50) M/uL Hgb 11.6 L (12.0-15.0) g/dL Hct 35.7 L (36.0-48.0) % MCV 81 (80-98) fL MCH 26 L (27-31) pg MCHC 33 (32-36) % Plt Count 172 (150-400) K/uL Neut % (Auto) 71.7 H (36-66) % Lymph % (Auto) 17.1 L (24-44) % [place] % (Auto) 9.6 H (2-6) % Eos % (Auto) 1.4 L (2-4) % Baso % (Auto) 0.2 (0-1) % Urine Color Yellow (YELLOW) Urine Appearance Clear (CLEAR) Urine pH 7.5 (5.0-8.0) Ur Specific [place] 1.020 (1.008-1.030) Urine Protein Negative (NEGATIVE) mg/dL Urine Glucose (UA) Negative (NEGATIVE) mg/dL Urine Ketones Negative (NEGATIVE) mg/dL Urine Occult Blood Negative (NEGATIVE) Urine Nitrite Negative (NEGATIVE) Urine Bilirubin Negative (NEGATIVE) Urine Urobilinogen 0.2 (0.2-1.0) EU/dL Ur Leukocyte Esterase Trace H (NEGATIVE) Urine RBC 0-5 (0-5) Urine WBC 0-5 (0-5) Ur Epithelial Cells Few Amorphous Sediment Not seen Urine Bacteria Moderate Urine Mucus Not seen Urine Opiates Screen Negative (NEGATIVE) Ur Oxycodone Screen Negative (NEGATIVE) Urine Methadone Screen Negative (NEGATIVE) Ur Propoxyphene Screen Negative (NEGATIVE) Ur Barbiturates Screen Negative (NEGATIVE) Ur Tricyclics Screen Negative (NEGATIVE) Ur Phencyclidine Scrn Negative (NEGATIVE) Ur Amphetamine Screen Negative (NEGATIVE) U Methamphetamines Scrn Negative (NEGATIVE) Urine MDMA Screen Negative (NEGATIVE) U Benzodiazepines Scrn Negative (NEGATIVE) U Cocaine Metab Screen Negative (NEGATIVE) U Marijuana (THC) Screen Negative (NEGATIVE) SARS-CoV-2 RNA (TALI) (NEGATIVE) 11/13/20 Range/Units 05:44 WBC (4.5-11.0) K/uL RBC (3.30-5.50) M/uL Hgb (12.0-15.0) g/dL Hct (36.0-48.0) % MCV (80-98) fL MCH (27-31) pg MCHC (32-36) % Plt Count (150-400) K/uL Neut % (Auto) (36-66) % Lymph % (Auto) (24-44) % [place] % (Auto) (2-6) % Eos % (Auto) (2-4) % Baso % (Auto) (0-1) % Urine Color (YELLOW) Urine Appearance (CLEAR) Urine pH (5.0-8.0) Ur Specific [place] (1.008-1.030) Urine Protein (NEGATIVE) mg/dL Urine Glucose (UA) (NEGATIVE) mg/dL Urine Ketones (NEGATIVE) mg/dL Urine Occult Blood (NEGATIVE) Urine Nitrite (NEGATIVE) Urine Bilirubin (NEGATIVE) Urine Urobilinogen (0.2-1.0) EU/dL Ur Leukocyte Esterase (NEGATIVE) Urine RBC (0-5) Urine WBC (0-5) Ur Epithelial Cells Amorphous Sediment Urine Bacteria Urine Mucus Urine Opiates Screen (NEGATIVE) Ur Oxycodone Screen (NEGATIVE) Urine Methadone Screen (NEGATIVE) Ur Propoxyphene Screen (NEGATIVE) Ur Barbiturates Screen (NEGATIVE) Ur Tricyclics Screen (NEGATIVE) Ur Phencyclidine Scrn (NEGATIVE) Ur Amphetamine Screen (NEGATIVE) U Methamphetamines Scrn (NEGATIVE) Urine MDMA Screen (NEGATIVE) U Benzodiazepines Scrn (NEGATIVE) U Cocaine Metab Screen (NEGATIVE) U Marijuana (THC) Screen (NEGATIVE) SARS-CoV-2 RNA (TALI) Negative (NEGATIVE) Result Diagrams: 11/13/20 05:40 - Problem List (1) Active labor at term SNOMED Code(s): 62554974 ICD Code: [id number] - Status: Acute Current Visit: No (2) Labor established SNOMED Code(s): 88668738 ICD Code: [id number] - Status: Acute Current Visit: No (3) SNOMED Code(s): 12263198 ICD Code: Z34.90 - ENCNTR FOR SUPRVSN OF NORMAL , UNSP, UNSP TRIMESTER Status: Acute Current Visit: No Qualifiers: Weeks of gestation: 39 weeks Qualified Code(s): Z3A.39 - 39 weeks gestation of (4) Term SNOMED Code(s): 39038152 ICD Code: Z34.80 - ENCOUNTER FOR SUPRVSN OF NORMAL , UNSP TRIMESTER Status: Acute Current Visit: No Orders Last 24hrs: Active Orders 24 hr Category Date Time Status Patient Status [ADT] Routine ADT 11/13/20 05:35 Active Patient Status [ADT] Routine ADT 11/13/20 07:51 Active Ambulate [RC] PER UNIT ROUTINE Care 11/13/20 05:35 Active Communication Order [RC] ASDIRECTED Care 11/13/20 05:35 Active Non Stress Test [RC] Click to Edit Care 11/13/20 05:35 Active May Shower [RC] ASDIRECTED Care 11/13/20 05:35 Active Notify Provider Vital Signs [RC] PRN Care 11/13/20 05:35 Active Notify Provider [RC] PRN Care 11/13/20 05:35 Active OB Check [OM.PC] Click To Edit Care 11/13/20 04:56 Ordered Up ad Lucia [RC] ASDIRECTED Care 11/13/20 05:35 Active VTE/DVT Education [RC] Click to Edit Care 11/13/20 05:37 Active Vital Signs [RC] PER UNIT ROUTINE Care 11/13/20 05:35 Active Vital Signs [RC] PFP Care 11/13/20 07:51 Active Consult to Temporary Staff Accountant [CONS] Routine Cons 11/13/20 07:50 Active Regular Diet [DIET] Diet 11/13/20 Breakfast Active Acetaminophen [TylenoL] Med 11/13/20 05:35 Active 650 mg PO Q4H PRN Acetaminophen [Tylenol Bulk Bottle] Med 11/13/20 07:52 Ordered See Dose Instructions PO Q4H PRN Benzocaine [Clco-K-Bnaprks 20% [place]] Med 11/13/20 07:50 Once See Dose Instructions TOP ONETIME ONE Ibuprofen [Motrin Bulk Bottle] Med 11/13/20 07:52 Ordered 600 mg PO Q6H PRN Lanolin [Lansinoh HPA] Med 11/13/20 07:50 Once 1 gm TOP ONETIME ONE Ondansetron [Zofran] Med 11/13/20 05:35 Active 4 mg IV Q4H PRN Oxytocin/Normal Saline [Pitocin in NS 20 Units/1,000 ML Med 11/13/20 06:00 Active ] 20 unit in 1,000 ml IV TITRATE Sodium Chloride 0.9% [Saline Flush] Med 11/13/20 05:35 Active 10 ml FLUSH ASDIRECTED PRN witch Delaney [Tucks] Med 11/13/20 07:50 Once 1 pad TOP ONETIME ONE Assess Lochia [WOMSER] Per Unit Routine Ot 11/13/20 07:50 Ordered Assess Uterine Involution [WOMSER] Per Unit Routine Ot 11/13/20 07:50 Ordered DVT/VTE Prophylaxis Reflex [OM.PC] Routine Oth 11/13/20 05:35 Ordered Perineal Care [OM.PC] Per Unit Routine Oth 11/13/20 07:51 Ordered Saline Lock Insert [OM.PC] Routine Oth 11/13/20 05:35 Ordered Resuscitation Status Routine Resus Stat 11/13/20 05:35 Ordered Medication Orders Acetaminophen (Acetaminophen 325 Mg Tab) 650 mg PO Q4H PRN PRN Reason: Pain (Mild 1-3) and fever Acetaminophen (Acetaminophen 325 Mg Tab, 50 Tab Bulk Bottle) 0 mg PO Q4H PRN PRN Reason: Pain Benzocaine (Benzocaine 20% Top [place] 56 Gm Bottle) 0 gm TOP ONETIME ONE Stop: 11/13/20 07:51 Emollient Ointment (Lanolin 100% Cream 40 Gm Tube) 1 gm TOP ONETIME ONE Stop: 11/13/20 07:51 Oxytocin/Sodium Chloride (Pitocin In Ns 20 Units/1,000 Ml) 20 unit in 1,000 mls @ 999 mls/hr IV TITRATE NEERU; Protocol Ibuprofen (Ibuprofen 200 Mg Tab, 24 Tab Bulk Bottle) 600 mg PO Q6H PRN PRN Reason: Pain Ondansetron HCl (Ondansetron 4 Mg/2 Ml Sdv) 4 mg IV Q4H PRN PRN Reason: Nausea/Vomiting Sodium Chloride (Sodium Chloride 0.9% 10 Ml Syringe) 10 ml FLUSH ASDIRECTED PRN PRN Reason: Keep Vein Open Witch Delaney (Witch [place] Medicated Pads 100/Jar) 1 pad TOP ONETIME ONE Stop: 11/13/20 07:51 Assessment/Plan Comment:: 11/13/2020 complicated by suspected IUGR Student HERMELINDA Mcclellan participated in the admission and assessment of this patient and I was in attendance during the any procedures and attest that I also reviewed all documentation and reports. Bev Sharif CNM-GELY
[2020-11-13] MEDS ORDERED: Misoprostol 200 MCG Tab ONE (07:21)
[2020-11-13] MEDS ORDERED: Benzocaine 20% Top Spray 56 GM Bottle TOP PRN (07:50)
[2020-11-13] MEDS ORDERED: Acetaminophen 325 MG Tab, 50 Tab Bulk Bottle PO PRN (07:52)
[2020-11-13] MEDS ORDERED: Ibuprofen 200 MG Tab, 24 Tab Bulk Bottle PO PRN (07:52)
--- NOTE | 2020-11-13 07:59 | PCM.PNLD ---
<Dottie Desouza [place] - Last Filed: 11/13/20 07:59> Labor Progress Note - VS & Meds Vital Signs: Last Vital Signs Temp 98.3 F 11/13/20 05:05 Pulse 88 11/13/20 05:05 Resp 16 11/13/20 05:05 BP 121/66 11/13/20 05:05 Pulse Ox 98 11/13/20 05:05 Active Medications: Current Medications Acetaminophen (Acetaminophen 325 Mg Tab) 650 mg PO Q4H PRN PRN Reason: Pain (Mild 1-3) and fever Acetaminophen (Acetaminophen 325 Mg Tab, 50 Tab Bulk Bottle) 0 mg PO Q4H PRN PRN Reason: Pain Benzocaine (Benzocaine 20% Top [place] 56 Gm Bottle) 0 gm TOP ONETIME ONE Stop: 11/13/20 07:51 Emollient Ointment (Lanolin 100% Cream 40 Gm Tube) 1 gm TOP ONETIME ONE Stop: 11/13/20 07:51 Oxytocin/Sodium Chloride (Pitocin In Ns 20 Units/1,000 Ml) 20 unit in 1,000 mls @ 999 mls/hr IV TITRATE NEERU; Protocol Ibuprofen (Ibuprofen 200 Mg Tab, 24 Tab Bulk Bottle) 600 mg PO Q6H PRN PRN Reason: Pain Ondansetron HCl (Ondansetron 4 Mg/2 Ml Sdv) 4 mg IV Q4H PRN PRN Reason: Nausea/Vomiting Sodium Chloride (Sodium Chloride 0.9% 10 Ml Syringe) 10 ml FLUSH ASDIRECTED PRN PRN Reason: Keep Vein Open Witch Delaney (Witch Delaney Medicated Pads 100/Jar) 1 pad TOP ONETIME ONE Stop: 11/13/20 07:51 Discontinued Medications Penicillin G Potassium 5 (millunits/ Sodium Chloride) 50 mls @ 100 mls/hr IV ONETIME ONE Stop: 11/13/20 06:04 Last Admin: 11/13/20 05:58 Dose: 100 mls/hr Documented by: Sodium Chloride (Normal Saline) Confirm Administered Dose 50 mls @ as directed .ROUTE .STK-MED ONE Stop: 11/13/20 05:48 Last Admin: 11/13/20 05:59 Dose: Not Given Documented by: Oxytocin/Sodium Chloride (Pitocin In Ns 20 Units/1,000 Ml) Confirm Administered Dose 20 unit in 1,000 mls @ as directed .ROUTE .STK-MED ONE Stop: 11/13/20 06:04 Misoprostol (Misoprostol 200 Mcg Tab) Confirm Administered Dose 800 mcg .ROUTE .STK-MED ONE Stop: 11/13/20 07:22 - Uterine Contractions Uterine Monitoring Mode: Palpation Contraction Frequency (min): 3 Contraction Intensity: Moderate to Strong Uterine Resting Tone: Soft - Monitoring Monitor Mode: Doppler/Auscultation Heart Rate (FHR) Baseline: 140 Heart Rate (FHR) Variability: Moderate (6-25 bpm) - Vaginal Exam Dilation (cm): 8 Effacement (Percent): 80 Sterile Vaginal Exam Performed By: Bev Sharif - Labor Progress (Free Text) Labor Progress: 11/13/20 At 0632 Imani was feeling increased pressure and intensity of contractions, SVE for 8cm and 80% effaced, AROM for clear fluid. EFM shows category 1 tracing, at bedside and supported. Pt was tolerating pain in the tub and continues to labor out of the tub with position change and controlled breathing. Will continue to anticipate <Bev Sharif - Last Filed: 11/13/20 08:05> Labor Progress Note - VS & Meds Vital Signs: Last Vital Signs Temp 36.8 C 11/13/20 05:05 Pulse 88 11/13/20 05:05 Resp 16 11/13/20 05:05 BP 121/66 11/13/20 05:05 Pulse Ox 98 11/13/20 05:05 Active Medications: Current Medications Acetaminophen (Acetaminophen 325 Mg Tab) 650 mg PO Q4H PRN PRN Reason: Pain (Mild 1-3) and fever Acetaminophen (Acetaminophen 325 Mg Tab, 50 Tab Bulk Bottle) 0 mg PO Q4H PRN PRN Reason: Pain Benzocaine (Benzocaine 20% Top [place] 56 Gm Bottle) 0 gm TOP Q4H PRN PRN Reason: PERINEAL PAIN Emollient Ointment (Lanolin 100% Cream 40 Gm Tube) 1 gm TOP ONETIME ONE Stop: 11/13/20 08:31 Oxytocin/Sodium Chloride (Pitocin In Ns 20 Units/1,000 Ml) 20 unit in 1,000 mls @ 999 mls/hr IV TITRATE NEERU; Protocol Ibuprofen (Ibuprofen 200 Mg Tab, 24 Tab Bulk Bottle) 600 mg PO Q6H PRN PRN Reason: Pain Ondansetron HCl (Ondansetron 4 Mg/2 Ml Sdv) 4 mg IV Q4H PRN PRN Reason: Nausea/Vomiting Sodium Chloride (Sodium Chloride 0.9% 10 Ml Syringe) 10 ml FLUSH ASDIRECTED PRN PRN Reason: Keep Vein Open Witch Delaney (Witch Delaney Medicated Pads 100/Jar) 1 pad TOP ONETIME ONE Stop: 11/13/20 08:31 Discontinued Medications Penicillin G Potassium 5 (millunits/ Sodium Chloride) 50 mls @ 100 mls/hr IV ONETIME ONE Stop: 11/13/20 06:04 Last Admin: 11/13/20 05:58 Dose: 100 mls/hr Documented by: Sodium Chloride (Normal Saline) Confirm Administered Dose 50 mls @ as directed .ROUTE .STK-MED ONE Stop: 11/13/20 05:48 Last Admin: 11/13/20 05:59 Dose: Not Given Documented by: Oxytocin/Sodium Chloride (Pitocin In Ns 20 Units/1,000 Ml) Confirm Administered Dose 20 unit in 1,000 mls @ as directed .ROUTE .STK-MED ONE Stop: 11/13/20 06:04 Misoprostol (Misoprostol 200 Mcg Tab) Confirm Administered Dose 800 mcg .ROUTE .STK-MED ONE Stop: 11/13/20 07:22 - Labor Progress (Free Text) Labor Progress: 11/13/2020 Patient desires AROM, education done on procedure, patient verbalized understanding and consent. AROM done with clear fluid. Patient tolerated procedure. Student HERMELINDA Mcclellan participated in the assessment of this patient and I was in attendance during the any procedures and attest that I also reviewed all documentation and reports. Bev Sharif CNM-GELY
--- NOTE | 2020-11-13 08:06 | PCM.DEL ---
<Dottie Desouza A - Last Filed: 11/13/20 08:00> L & D Note - General Info Date of Service: 11/13/20 Mother's Due Date: 11/18/20 - Delivery Note Labor: Spontaneous Delivery Outcome: Livebirth Infant Delivery Method: Spontaneous Vaginal Delivery-Single Delivery Mode: Spontaneous Presentation: Right Occiput Anterior (GRABIEL) Nuchal Cord: None Anesthesia Type: None Amniotic Fluid Description: Clear Episiotomy Type: None Laceration: None Placenta: Intact, Spontaneous Cord: 3 Vessels Estimated Blood Loss: 350 Resuscitation Needed: No [place]: Stimulated, Warmed, [place] Used Provider: Bev Sharif Score 1 min: 9 Score 5 min: 9 Second Stage Interventions: Reports: Second Nurse Assessed Progress of Descent, Second Nurse Reviewed Contraction Pattern, Second Nurse Reviewed Heart Tones, Encouragement Given, Pushing Effectively, Pushing, Pulls Own Legs Back Delivery Comments (Free Text/Narrative):: 11/13/20 Imani is a 25 year old G3 now P3 at 39/2 weeks gestation. She delivered a baby girl at 0715 via in GRABIEL position. She was unmedicated and pushed effectively. Baby was dried and stimulated, APGARs were 9 and 9 at 1 and 5 minutes respectively, there was no nuchal cord and it was a 3 vessel cord. The placenta was expressed spontaneously and was intact. There was no laceration or episiotomy. EBL was 350 and stabilized after delivery of the placenta. Imani to recovery room in stable condition. Baby girl to nursery in stable condition. 1st stage of labor: 7302-9216 2nd stage of labor: 7341-7910 3rd stage of labor: 1876-7534 - General Info Date of Service: 11/13/20 Admission Dx/Problem (Free Text): Active Labor Functional Status: Reports: Pain Controlled - Review of Systems General: Reports: No Symptoms HEENT: Reports: No Symptoms Pulmonary: Reports: No Symptoms Cardiovascular: Reports: No Symptoms Gastrointestinal: Reports: No Symptoms Genitourinary: Reports: No Symptoms Musculoskeletal: Reports: No Symptoms Skin: Reports: No Symptoms Neurological: Reports: No Symptoms Psychiatric: Reports: No Symptoms - Patient Data Vitals - Most Recent: Last Vital Signs Temp 98.3 F 11/13/20 05:05 Pulse 88 11/13/20 05:05 Resp 16 11/13/20 05:05 BP 121/66 11/13/20 05:05 Pulse Ox 98 11/13/20 05:05 Lab Results Last 24 Hours: Laboratory Results - last 24 hr 11/13/20 11/13/20 11/13/20 Range/Units 04:56 05:35 05:40 WBC 11.3 H (4.5-11.0) K/uL RBC 4.39 (3.30-5.50) M/uL Hgb 11.6 L (12.0-15.0) g/dL Hct 35.7 L (36.0-48.0) % MCV 81 (80-98) fL MCH 26 L (27-31) pg MCHC 33 (32-36) % Plt Count 172 (150-400) K/uL Neut % (Auto) 71.7 H (36-66) % Lymph % (Auto) 17.1 L (24-44) % Crisp % (Auto) 9.6 H (2-6) % Eos % (Auto) 1.4 L (2-4) % Baso % (Auto) 0.2 (0-1) % Urine Color Yellow (YELLOW) Urine Appearance Clear (CLEAR) Urine pH 7.5 (5.0-8.0) Ur Specific Ethel 1.020 (1.008-1.030) Urine Protein Negative (NEGATIVE) mg/dL Urine Glucose (UA) Negative (NEGATIVE) mg/dL Urine Ketones Negative (NEGATIVE) mg/dL Urine Occult Blood Negative (NEGATIVE) Urine Nitrite Negative (NEGATIVE) Urine Bilirubin Negative (NEGATIVE) Urine Urobilinogen 0.2 (0.2-1.0) EU/dL Ur Leukocyte Esterase Trace H (NEGATIVE) Urine RBC 0-5 (0-5) Urine WBC 0-5 (0-5) Ur Epithelial Cells Few Amorphous Sediment Not seen Urine Bacteria Moderate Urine Mucus Not seen Urine Opiates Screen Negative (NEGATIVE) Ur Oxycodone Screen Negative (NEGATIVE) Urine Methadone Screen Negative (NEGATIVE) Ur Propoxyphene Screen Negative (NEGATIVE) Ur Barbiturates Screen Negative (NEGATIVE) Ur Tricyclics Screen Negative (NEGATIVE) Ur Phencyclidine Scrn Negative (NEGATIVE) Ur Amphetamine Screen Negative (NEGATIVE) U Methamphetamines Scrn Negative (NEGATIVE) Urine MDMA Screen Negative (NEGATIVE) U Benzodiazepines Scrn Negative (NEGATIVE) U Cocaine Metab Screen Negative (NEGATIVE) U Marijuana (THC) Screen Negative (NEGATIVE) SARS-CoV-2 RNA (TALI) (NEGATIVE) 11/13/20 Range/Units 05:44 WBC (4.5-11.0) K/uL RBC (3.30-5.50) M/uL Hgb (12.0-15.0) g/dL Hct (36.0-48.0) % MCV (80-98) fL MCH (27-31) pg MCHC (32-36) % Plt Count (150-400) K/uL Neut % (Auto) (36-66) % Lymph % (Auto) (24-44) % Crisp % (Auto) (2-6) % Eos % (Auto) (2-4) % Baso % (Auto) (0-1) % Urine Color (YELLOW) Urine Appearance (CLEAR) Urine pH (5.0-8.0) Ur Specific Ethel (1.008-1.030) Urine Protein (NEGATIVE) mg/dL Urine Glucose (UA) (NEGATIVE) mg/dL Urine Ketones (NEGATIVE) mg/dL Urine Occult Blood (NEGATIVE) Urine Nitrite (NEGATIVE) Urine Bilirubin (NEGATIVE) Urine Urobilinogen (0.2-1.0) EU/dL Ur Leukocyte Esterase (NEGATIVE) Urine RBC (0-5) Urine WBC (0-5) Ur Epithelial Cells Amorphous Sediment Urine Bacteria Urine Mucus Urine Opiates Screen (NEGATIVE) Ur Oxycodone Screen (NEGATIVE) Urine Methadone Screen (NEGATIVE) Ur Propoxyphene Screen (NEGATIVE) Ur Barbiturates Screen (NEGATIVE) Ur Tricyclics Screen (NEGATIVE) Ur Phencyclidine Scrn (NEGATIVE) Ur Amphetamine Screen (NEGATIVE) U Methamphetamines Scrn (NEGATIVE) Urine MDMA Screen (NEGATIVE) U Benzodiazepines Scrn (NEGATIVE) U Cocaine Metab Screen (NEGATIVE) U Marijuana (THC) Screen (NEGATIVE) SARS-CoV-2 RNA (TALI) Negative (NEGATIVE) Med Orders - Current: Current Medications Acetaminophen (Acetaminophen 325 Mg Tab) 650 mg PO Q4H PRN PRN Reason: Pain (Mild 1-3) and fever Acetaminophen (Acetaminophen 325 Mg Tab, 50 Tab Bulk Bottle) 0 mg PO Q4H PRN PRN Reason: Pain Benzocaine (Benzocaine 20% Top [place] 56 Gm Bottle) 0 gm TOP Q4H PRN PRN Reason: PERINEAL PAIN Emollient Ointment (Lanolin 100% Cream 40 Gm Tube) 1 gm TOP ONETIME ONE Stop: 11/13/20 08:31 Oxytocin/Sodium Chloride (Pitocin In Ns 20 Units/1,000 Ml) 20 unit in 1,000 mls @ 999 mls/hr IV TITRATE NEERU; Protocol Ibuprofen (Ibuprofen 200 Mg Tab, 24 Tab Bulk Bottle) 600 mg PO Q6H PRN PRN Reason: Pain Ondansetron HCl (Ondansetron 4 Mg/2 Ml Sdv) 4 mg IV Q4H PRN PRN Reason: Nausea/Vomiting Sodium Chloride (Sodium Chloride 0.9% 10 Ml Syringe) 10 ml FLUSH ASDIRECTED PRN PRN Reason: Keep Vein Open Witch Delaney (Witch Delaney Medicated Pads 100/Jar) 1 pad TOP ONETIME ONE Stop: 11/13/20 08:31 Discontinued Medications Penicillin G Potassium 5 (millunits/ Sodium Chloride) 50 mls @ 100 mls/hr IV ONETIME ONE Stop: 11/13/20 06:04 Last Admin: 11/13/20 05:58 Dose: 100 mls/hr Documented by: Sodium Chloride (Normal Saline) Confirm Administered Dose 50 mls @ as directed .ROUTE .STK-MED ONE Stop: 11/13/20 05:48 Last Admin: 11/13/20 05:59 Dose: Not Given Documented by: Oxytocin/Sodium Chloride (Pitocin In Ns 20 Units/1,000 Ml) Confirm Administered Dose 20 unit in 1,000 mls @ as directed .ROUTE .STK-MED ONE Stop: 11/13/20 06:04 Misoprostol (Misoprostol 200 Mcg Tab) Confirm Administered Dose 800 mcg .ROUTE .STK-MED ONE Stop: 11/13/20 07:22 - Exam General: Alert, Oriented HEENT: Pupils Equal, Pupils Reactive, EOMI, Mucous Membr. Moist/[place] Neck: Supple Lungs: Clear to Auscultation, Normal Respiratory Effort Cardiovascular: Regular Rate, Regular Rhythm GI/Abdominal Exam: Normal Bowel Sounds, Soft, Non-Tender, No Organomegaly, No Distention, No Abnormal Bruit, No Mass, Pelvis Stable (Female) Exam: Normal External Exam, Normal Speculum Exam, Normal Bimanual Exam Back Exam: Normal Inspection, Full Range of Motion Extremities: Normal Inspection, Normal Range of Motion, Non-Tender, No Pedal Edema, Normal Capillary Refill Skin: Warm, Dry, Intact Wound/Incisions: Healing Well Neurological: No New Focal Deficit Psy/Mental Status: Alert, Normal Affect, Normal Mood - Problem List & Annotations (1) Active labor at term SNOMED Code(s): 84735049 Code(s): OOU3851 - Status: Acute Current Visit: No (2) Labor established SNOMED Code(s): 97600459 Code(s): XMN9741 - Status: Acute Current Visit: No (3) Normal vaginal delivery SNOMED Code(s): 00867123, 607239716 Code(s): O80 - ENCOUNTER FOR FULL-TERM UNCOMPLICATED DELIVERY Status: Acute Current Visit: No (4) Term SNOMED Code(s): 63094566 Code(s): Z34.80 - ENCOUNTER FOR SUPRVSN OF NORMAL , UNSP TRIMESTER Status: Acute Current Visit: No (5) SNOMED Code(s): 68282728 Code(s): Z34.90 - ENCNTR FOR SUPRVSN OF NORMAL , UNSP, UNSP TRIMESTER Status: Acute Current Visit: No Qualifiers: - Assessment Assessment:: 11/13/20 Assessment: without complications No lacerations Intending to breastfeed at bedside for support - Plan Plan:: 11/13/20 Assessment: Healthy at 39/2 weeks gestation complicated by IUGR EFM is category one GBS positive Desires unmedicated Plan: Anticipate Penicillin per protocol for GBS Continue to monitor baby with EFM/doppler Continue to monitor contraction pattern 11/13/20 Plan: Routine cares Encourage Continue to monitor bleeding Expect discharge at 48 hours for GBS status <Bev Sharif - Last Filed: 11/13/20 08:17> - Patient Data Vitals - Most Recent: Last Vital Signs Temp 36.8 C 11/13/20 05:05 Pulse 88 11/13/20 05:05 Resp 16 11/13/20 05:05 BP 121/66 11/13/20 05:05 Pulse Ox 98 11/13/20 05:05 Lab Results Last 24 Hours: Laboratory Results - last 24 hr 11/13/20 11/13/20 11/13/20 Range/Units 04:56 05:35 05:40 WBC 11.3 H (4.5-11.0) K/uL RBC 4.39 (3.30-5.50) M/uL Hgb 11.6 L (12.0-15.0) g/dL Hct 35.7 L (36.0-48.0) % MCV 81 (80-98) fL MCH 26 L (27-31) pg MCHC 33 (32-36) % Plt Count 172 (150-400) K/uL Neut % (Auto) 71.7 H (36-66) % Lymph % (Auto) 17.1 L (24-44) % Crisp % (Auto) 9.6 H (2-6) % Eos % (Auto) 1.4 L (2-4) % Baso % (Auto) 0.2 (0-1) % Urine Color Yellow (YELLOW) Urine Appearance Clear (CLEAR) Urine pH 7.5 (5.0-8.0) Ur Specific Ethel 1.020 (1.008-1.030) Urine Protein Negative (NEGATIVE) mg/dL Urine Glucose (UA) Negative (NEGATIVE) mg/dL Urine Ketones Negative (NEGATIVE) mg/dL Urine Occult Blood Negative (NEGATIVE) Urine Nitrite Negative (NEGATIVE) Urine Bilirubin Negative (NEGATIVE) Urine Urobilinogen 0.2 (0.2-1.0) EU/dL Ur Leukocyte Esterase Trace H (NEGATIVE) Urine RBC 0-5 (0-5) Urine WBC 0-5 (0-5) Ur Epithelial Cells Few Amorphous Sediment Not seen Urine Bacteria Moderate Urine Mucus Not seen Urine Opiates Screen Negative (NEGATIVE) Ur Oxycodone Screen Negative (NEGATIVE) Urine Methadone Screen Negative (NEGATIVE) Ur Propoxyphene Screen Negative (NEGATIVE) Ur Barbiturates Screen Negative (NEGATIVE) Ur Tricyclics Screen Negative (NEGATIVE) Ur Phencyclidine Scrn Negative (NEGATIVE) Ur Amphetamine Screen Negative (NEGATIVE) U Methamphetamines Scrn Negative (NEGATIVE) Urine MDMA Screen Negative (NEGATIVE) U Benzodiazepines Scrn Negative (NEGATIVE) U Cocaine Metab Screen Negative (NEGATIVE) U Marijuana (THC) Screen Negative (NEGATIVE) SARS-CoV-2 RNA (TALI) (NEGATIVE) 11/13/20 Range/Units 05:44 WBC (4.5-11.0) K/uL RBC (3.30-5.50) M/uL Hgb (12.0-15.0) g/dL Hct (36.0-48.0) % MCV (80-98) fL MCH (27-31) pg MCHC (32-36) % Plt Count (150-400) K/uL Neut % (Auto) (36-66) % Lymph % (Auto) (24-44) % Crisp % (Auto) (2-6) % Eos % (Auto) (2-4) % Baso % (Auto) (0-1) % Urine Color (YELLOW) Urine Appearance (CLEAR) Urine pH (5.0-8.0) Ur Specific Ethel (1.008-1.030) Urine Protein (NEGATIVE) mg/dL Urine Glucose (UA) (NEGATIVE) mg/dL Urine Ketones (NEGATIVE) mg/dL Urine Occult Blood (NEGATIVE) Urine Nitrite (NEGATIVE) Urine Bilirubin (NEGATIVE) Urine Urobilinogen (0.2-1.0) EU/dL Ur Leukocyte Esterase (NEGATIVE) Urine RBC (0-5) Urine WBC (0-5) Ur Epithelial Cells Amorphous Sediment Urine Bacteria Urine Mucus Urine Opiates Screen (NEGATIVE) Ur Oxycodone Screen (NEGATIVE) Urine Methadone Screen (NEGATIVE) Ur Propoxyphene Screen (NEGATIVE) Ur Barbiturates Screen (NEGATIVE) Ur Tricyclics Screen (NEGATIVE) Ur Phencyclidine Scrn (NEGATIVE) Ur Amphetamine Screen (NEGATIVE) U Methamphetamines Scrn (NEGATIVE) Urine MDMA Screen (NEGATIVE) U Benzodiazepines Scrn (NEGATIVE) U Cocaine Metab Screen (NEGATIVE) U Marijuana (THC) Screen (NEGATIVE) SARS-CoV-2 RNA (TALI) Negative (NEGATIVE) Med Orders - Current: Current Medications Acetaminophen (Acetaminophen 325 Mg Tab) 650 mg PO Q4H PRN PRN Reason: Pain (Mild 1-3) and fever Acetaminophen (Acetaminophen 325 Mg Tab, 50 Tab Bulk Bottle) 0 mg PO Q4H PRN PRN Reason: Pain Benzocaine (Benzocaine 20% Top [place] 56 Gm Bottle) 0 gm TOP Q4H PRN PRN Reason: PERINEAL PAIN Emollient Ointment (Lanolin 100% Cream 40 Gm Tube) 1 gm TOP ONETIME ONE Stop: 11/13/20 08:31 Oxytocin/Sodium Chloride (Pitocin In Ns 20 Units/1,000 Ml) 20 unit in 1,000 mls @ 999 mls/hr IV TITRATE NEERU; Protocol Ibuprofen (Ibuprofen 200 Mg Tab, 24 Tab Bulk Bottle) 600 mg PO Q6H PRN PRN Reason: Pain Ondansetron HCl (Ondansetron 4 Mg/2 Ml Sdv) 4 mg IV Q4H PRN PRN Reason: Nausea/Vomiting Sodium Chloride (Sodium Chloride 0.9% 10 Ml Syringe) 10 ml FLUSH ASDIRECTED PRN PRN Reason: Keep Vein Open Witch Delaney (Witch Delaney Medicated Pads 100/Jar) 1 pad TOP ONETIME ONE Stop: 11/13/20 08:31 Discontinued Medications Penicillin G Potassium 5 (millunits/ Sodium Chloride) 50 mls @ 100 mls/hr IV ONETIME ONE Stop: 11/13/20 06:04 Last Admin: 11/13/20 05:58 Dose: 100 mls/hr Documented by: Sodium Chloride (Normal Saline) Confirm Administered Dose 50 mls @ as directed .ROUTE .STK-MED ONE Stop: 11/13/20 05:48 Last Admin: 11/13/20 05:59 Dose: Not Given Documented by: Oxytocin/Sodium Chloride (Pitocin In Ns 20 Units/1,000 Ml) Confirm Administered Dose 20 unit in 1,000 mls @ as directed .ROUTE .STK-MED ONE Stop: 11/13/20 06:04 Misoprostol (Misoprostol 200 Mcg Tab) Confirm Administered Dose 800 mcg .ROUTE .STK-MED ONE Stop: 11/13/20 07:22 - Problem List & Annotations (1) Active labor at term SNOMED Code(s): 86934293 Code(s): AIU3862 - Status: Acute Current Visit: No (2) Labor established SNOMED Code(s): 69193171 Code(s): YYE4901 - Status: Acute Current Visit: No (3) SNOMED Code(s): 24265487 Code(s): Z34.90 - ENCNTR FOR SUPRVSN OF NORMAL , UNSP, UNSP TRIMESTER Status: Acute Current Visit: No Qualifiers: Weeks of gestation: 39 weeks Qualified Code(s): Z3A.39 - 39 weeks gestation of (4) Term SNOMED Code(s): 46583627 Code(s): Z34.80 - ENCOUNTER FOR SUPRVSN OF NORMAL , UNSP TRIMESTER Status: Acute Current Visit: No (5) (infant) SNOMED Code(s): 328844540 Code(s): Z78.9 - OTHER SPECIFIED HEALTH STATUS Status: Acute Current Visit: No (6) Normal vaginal delivery SNOMED Code(s): 53352680, 752592789 Code(s): O80 - ENCOUNTER FOR FULL-TERM UNCOMPLICATED DELIVERY Status: Acute Current Visit: No - Problem List Review Problem List Initiated/Reviewed/Updated: Yes - My Orders Last 24 Hours: My Active Orders 11/13/20 04:56 OB Check [OM.PC] Click To Edit 11/13/20 05:35 Patient Status [ADT] Routine Ambulate [RC] PER UNIT ROUTINE Communication Order [RC] ASDIRECTED Non Stress Test [RC] Click to Edit May Shower [RC] ASDIRECTED Notify Provider Vital Signs [RC] PRN Notify Provider [RC] PRN Up ad Lucia [RC] ASDIRECTED Vital Signs [RC] PER UNIT ROUTINE Acetaminophen [TylenoL] 650 mg PO Q4H PRN Ondansetron [Zofran] 4 mg IV Q4H PRN Sodium Chloride 0.9% [Saline Flush] 10 ml FLUSH ASDIRECTED PRN DVT/VTE Prophylaxis Reflex [OM.PC] Routine Saline Lock Insert [OM.PC] Routine Resuscitation Status Routine 11/13/20 05:37 VTE/DVT Education [RC] Click to Edit 11/13/20 06:00 Oxytocin/Normal Saline [Pitocin in NS 20 Units/1,000 ML] 20 unit in 1,000 ml IV TITRATE 11/13/20 07:50 Consult to [place] [CONS] Routine Benzocaine [Onjq-Y-Rsddfmn 20% [place]] See Dose Instructions TOP Q4H PRN Assess Lochia [WOMSER] Per Unit Routine Assess Uterine Involution [WOMSER] Per Unit Routine 11/13/20 07:51 Patient Status [ADT] Routine Vital Signs [RC] PFP Perineal Care [OM.PC] Per Unit Routine 11/13/20 07:52 Acetaminophen [Tylenol Bulk Bottle] See Dose Instructions PO Q4H PRN Ibuprofen [Motrin Bulk Bottle] 600 mg PO Q6H PRN 11/13/20 Breakfast Regular Diet [DIET] 11/13/20 08:30 Lanolin [Lansinoh HPA] 1 gm TOP ONETIME ONE witch Delaney [Tucks] 1 pad TOP ONETIME ONE - Plan Plan:: Student HERMELINDA Mcclellan participated in the delivery and assessment of this patient and I was in attendance during the any procedures and attest that I also reviewed all documentation and reports. Bev Sharif CNM-GELY
[2020-11-13] MEDS ORDERED: Witch Hazel Medicated Pads 100/Jar TOP ONE (08:30)
[2020-11-13] MEDS ORDERED: Lanolin 100% Cream 40 GM Tube TOP ONE (08:30)
--- NOTE | 2020-11-14 08:37 | PCM.PNPP ---
- General Info Date of Service: 11/14/20 Functional Status: Reports: Pain Controlled - Review of Systems General: Reports: No Symptoms HEENT: Reports: No Symptoms Pulmonary: Reports: No Symptoms Cardiovascular: Reports: No Symptoms Gastrointestinal: Reports: No Symptoms Genitourinary: Reports: No Symptoms Musculoskeletal: Reports: No Symptoms Skin: Reports: No Symptoms Neurological: Reports: No Symptoms Psychiatric: Reports: No Symptoms - General Info Date of Service: 11/14/20 - Patient Data Vital Signs - Most Recent: Last Vital Signs Temp 36.3 C 11/14/20 03:00 Pulse 74 11/14/20 03:00 Resp 18 11/14/20 03:00 BP 116/68 11/14/20 03:00 Pulse Ox 98 11/14/20 03:00 Weight - Most Recent: 80.739 kg I&O - Last 24 Hours: Intake & Output 11/13/20 11/14/20 11/14/20 22:59 06:59 14:59 Intake Total 1000 Balance 1000 Med Orders - Current: Current Medications Acetaminophen (Acetaminophen 325 Mg Tab) 650 mg PO Q4H PRN PRN Reason: Pain (Mild 1-3) and fever Acetaminophen (Acetaminophen 325 Mg Tab, 50 Tab Bulk Bottle) 0 mg PO Q4H PRN PRN Reason: Pain Last Admin: 11/13/20 09:03 Dose: 1 bottle Documented by: Benzocaine (Benzocaine 20% Top [place] 56 Gm Bottle) 0 gm TOP Q4H PRN PRN Reason: PERINEAL PAIN Last Admin: 11/13/20 09:03 Dose: 1 bottle Documented by: Oxytocin/Sodium Chloride (Pitocin In Ns 20 Units/1,000 Ml) 20 unit in 1,000 mls @ 999 mls/hr IV TITRATE NEERU; Protocol Ibuprofen (Ibuprofen 200 Mg Tab, 24 Tab Bulk Bottle) 600 mg PO Q6H PRN PRN Reason: Pain Last Admin: 11/13/20 09:03 Dose: 1 bottle Documented by: Ondansetron HCl (Ondansetron 4 Mg/2 Ml Sdv) 4 mg IV Q4H PRN PRN Reason: Nausea/Vomiting Sodium Chloride (Sodium Chloride 0.9% 10 Ml Syringe) 10 ml FLUSH ASDIRECTED PRN PRN Reason: Keep Vein Open Discontinued Medications Emollient Ointment (Lanolin 100% Cream 40 Gm Tube) 1 gm TOP ONETIME ONE Stop: 11/13/20 08:31 Last Admin: 11/13/20 09:02 Dose: 1 gm Documented by: Penicillin G Potassium 5 (millunits/ Sodium Chloride) 50 mls @ 100 mls/hr IV ONETIME ONE Stop: 11/13/20 06:04 Last Admin: 11/13/20 05:58 Dose: 100 mls/hr Documented by: Sodium Chloride (Normal Saline) Confirm Administered Dose 50 mls @ as directed .ROUTE .STK-MED ONE Stop: 11/13/20 05:48 Last Admin: 11/13/20 05:59 Dose: Not Given Documented by: Oxytocin/Sodium Chloride (Pitocin In Ns 20 Units/1,000 Ml) Confirm Administered Dose 20 unit in 1,000 mls @ as directed .ROUTE .STK-MED ONE Stop: 11/13/20 06:04 Last Admin: 11/13/20 08:30 Dose: Not Given Documented by: Misoprostol (Misoprostol 200 Mcg Tab) Confirm Administered Dose 800 mcg .ROUTE .STK-MED ONE Stop: 11/13/20 07:22 Last Admin: 11/13/20 08:30 Dose: Not Given Documented by: Susi Baltazar (Witch Delaney Medicated Pads 100/Jar) 1 pad TOP ONETIME ONE Stop: 11/13/20 08:31 Last Admin: 11/13/20 09:03 Dose: 1 pad Documented by: - Interaction Disposition, : Terry in Room with Family Interaction: Holding Infant Feeding: Breastfed ; Nursed Well Support Person: - Recovery Exam Fundal Tone: Firm Fundal Level: 1 Fingerbreadths Below Umbilicus Fundal Placement: Midline Lochia Amount: Small Lochia Color: Rubra/Red Perineum Description: Intact, Minimal Bruising/Swelling Episiotomy/Laceration: None Bladder Status: Voiding Urinary Elimination: Voided - Exam General: Alert, Oriented HEENT: Pupils Equal, Pupils Reactive, EOMI, Mucous Membr. Moist/[place] Neck: Supple Lungs: Clear to Auscultation, Normal Respiratory Effort Cardiovascular: Regular Rate, Regular Rhythm GI/Abdominal Exam: Normal Bowel Sounds, Soft, Non-Tender, No Organomegaly, No Distention, No Abnormal Bruit, No Mass, Pelvis Stable Extremities: Normal Inspection, Normal Range of Motion, Non-Tender, No Pedal Edema, Normal Capillary Refill Skin: Warm, Dry, Intact Neurological: No New Focal Deficit Psy/Mental Status: Alert, Normal Affect, Normal Mood - Problem List & Annotations (1) Active labor at term SNOMED Code(s): 90033871 Code(s): IVS5274 - Status: Acute Current Visit: No (2) Labor established SNOMED Code(s): 86191169 Code(s): PVJ4135 - Status: Acute Current Visit: No (3) SNOMED Code(s): 36251008 Code(s): Z34.90 - ENCNTR FOR SUPRVSN OF NORMAL , UNSP, UNSP TRIMESTER Status: Acute Current Visit: No Qualifiers: Weeks of gestation: 39 weeks Qualified Code(s): Z3A.39 - 39 weeks gestation of (4) Term SNOMED Code(s): 48697073 Code(s): Z34.80 - ENCOUNTER FOR SUPRVSN OF NORMAL , UNSP TRIMESTER Status: Acute Current Visit: No (5) () SNOMED Code(s): 389954732 Code(s): Z78.9 - OTHER SPECIFIED HEALTH STATUS Status: Acute Current Visit: No (6) Normal vaginal delivery SNOMED Code(s): 81563301, 055979572 Code(s): O80 - ENCOUNTER FOR FULL-TERM UNCOMPLICATED DELIVERY Status: Acute Current Visit: No - Problem List Review Problem List Initiated/Reviewed/Updated: Yes - My Orders Last 24 Hours: My Active Orders 11/13/20 07:50 Consult to Blood Or Blood Bank Technician [CONS] Routine Benzocaine [Kbaa-D-Pccmowv 20% [place]] See Dose Instructions TOP Q4H PRN Assess Lochia [WOMSER] Per Unit Routine Assess Uterine Involution [WOMSER] Per Unit Routine 11/13/20 07:51 Patient Status [ADT] Routine Vital Signs [RC] PFP Perineal Care [OM.PC] Per Unit Routine 11/13/20 07:52 Acetaminophen [Tylenol Bulk Bottle] See Dose Instructions PO Q4H PRN Ibuprofen [Motrin Bulk Bottle] 600 mg PO Q6H PRN 11/13/20 Breakfast Regular Diet [DIET] - Assessment Assessment:: 11/13/20 Assessment: without complications No lacerations Intending to breastfeed at bedside for support 11/14/2020 day one Voiding and passing gas Fundus firm and bleeding decreasing well Desires discharge home this evening - Plan Plan:: HERMELINDA Coleman participated in the delivery and assessment of this patient and I was in attendance during the any procedures and attest that I also reviewed all documentation and reports. HEENA Landis 11/14/2020 Routine cares Continue to support and encourage Discharge home later today To have a six week visit in clinic
[2020-11-14 11:29] VITALS: BP 122/63; PULSE 89
== END 2020-11-14 18:55 | disposition home or self-care (01) | DRG 807 ==
LOC: JP.OBCHECK 04:49 → JP.OB 04:49 → JP.OBCHECK 05:00 → JP.OB 05:13 → OBSVTOIN 07:15 → JP.MS 15:15
PROVIDERS: ADMIT Advanced Practice Midwife; ATTEND Advanced Practice Midwife
PROC: 10E0XZZ Delivery of Products of Conception, External Approach (ICD-10-PCS; principal; 2020-11-13)
PROC: 10907ZC Drainage of Amniotic Fluid, Therapeutic from Products of Conception, Via Natural or Artificial Opening (ICD-10-PCS; 2020-11-13)
DX: O99.824 Streptococcus B carrier state complicating childbirth (principal); Z37.0 Single live birth; Z3A.39 39 weeks gestation of pregnancy; O36.5930 Maternal care for other known or suspected poor fetal growth, third trimester, not applicable or unspecified; Z88.1 Allergy status to other antibiotic agents; Z20.822 Contact with and (suspected) exposure to COVID-19
CPT/HCPCS: 36415; 80305-QW; 81001; 85025; 99211; A9270-GY; J2540; J2590; U0002

== ENCOUNTER 2021-04-02 02:29 | Emergency (ER) | payer MEDICAID, OTHER ==
[2021-04-02] MEDS ORDERED: Ibuprofen 600 MG Tab PO ONE (03:03)
[2021-04-02 03:10] VITALS: BP 121/66; PULSE 87
== END 2021-04-02 04:11 | disposition home or self-care (01) ==
LOC: JP.ED 02:29
DX: K59.04 Chronic idiopathic constipation (principal); Z88.1 Allergy status to other antibiotic agents
CPT/HCPCS: 36415; 74018; 80053; 81001; 84484; 85025; 85379; 87086; 99284; A9270; 99283